=== PATIENT | female | born 1945 | race Caucasian/White ===

== ENCOUNTER → 2016-10-13 | Outpatient (CLI) | payer OTHER, MEDICARE ==
[~2016-10-13] VITALS: Ht 172.7 cm; Wt 124.3 kg
[~2016-10-13] MED LIST: CARVEDILOL12.5 MG PO; CLONAZEPAM 1 MG1 M1 PO; CRESTOR PO; CRESTOR5 MG PO; CYMBALTA60 MG PO; FISH OIL 1,0001 EAC5 PO; HYDROCHLOROTHIA25 M1 PO; HYDROCODON-ACE1 EAC8 PO; HYDROCODONE-AP1 EA11 PO; IBUPROFEN 800800 M1 PO; LESCOL XL80 MG PO; LEVOTHROID100 MC1 PO; LEVOTHROID200 MCG PO; LEVOTHROID88 MCG PO; LEVOTHYROXINE0.2 M1 PO; LEVOXYL200 MCG PO; LOPRESSOR 50 MG50 M1 PO; MACRODANTIN100 MG PO; NEURONTIN 300300 M1 PO; OMEPRAZOLE20 M2 PO; OXYCODON-ACETA1 EAC1 PO; PERCOCET 5-3251 EACH PO; PRILOSEC40 MG PO; SYNTHROID100 MCG PO; SYNTHROID88 MCG PO; TRAMADOL 50 MG50 MG PO; VITAMIN D400 UNI1 PO; ZETIA10 MG PO
--- NOTE | ~2016-10-13 | HPC ---
[facility] [address] [place] [address] PAIN MANAGEMENT CONSULTATION Name: JOSESITO JULIO JOSÉ MIGUEL Room #: REG CLPio Daniela.#: [id number] Admission: 10/13/16 Attend Phys: Shahab Almeida DO Discharge: Date of : 46 Report #: [id number] THIS REPORT FOR: //name// CC: Vishnu Almeida DATE OF SERVICE: 10/13/2016 REFERRING PHYSICIAN: Marilee HUSTON. CHIEF COMPLAINT: Low back pain, bilateral lower extremity pain. HISTORY OF PRESENT ILLNESS: As you know, the patient is a very pleasant 71-year-old female, who returns today in followup visit, to undergo next in the series of epidural injections under fluoroscopic guidance. The patient has done very well with previous epidural injections providing upwards of a month to month and half improvement in overall pain. She returns today with pain level of 6/10. States her pain as numbness, aching, tightness, spasming, sharp, grabbing in sensation, exacerbated with walking, standing, epidural seating, lying down, and medications appeared to improve pain. She has returned today for an epidural injection under fluoroscopic guidance, and to receive refills of medications. ALLERGIES: No known drug allergies. CURRENT MEDICATIONS: Zetia, clonazepam, duloxetine, hydrochlorothiazide, omega 3 fish oil, carvedilol, lovastatin, levothyroxine, gabapentin, hydrocodone, and ibuprofen. SOCIAL HISTORY: The patient denies tobacco, alcohol, or IV illicit drug use. She is retired. She is unaccompanied today. PHYSICAL EXAMINATION: VITAL SIGNS: Blood pressure 131/65, pulse 70, respiratory rate 16, unlabored. The patient is 92% on room air. Height 5 feet 8 inches tall, weight 274 pounds, BMI calculated 41.7. GENERAL: Well developed, well nourished, well hydrated, morbidly obese, 71-year-old female appearing her stated age. She is placing pain score today at 6/10. HEENT: Normocephalic and atraumatic. Pupils are equal, round, and reactive to light. Extraocular muscles are intact. Speech is fluent. EXTREMITIES: Show no clubbing, no cyanosis, no edema. MUSCULOSKELETAL: Seated straight leg raising negative. Supine straight leg raising positive. Yessica's test is negative. Gait is antalgic, utilizing cane for ambulation. [address] [address] PAIN MANAGEMENT CONSULTATION Name: JOSESITO JULIO Room #: REG CLI Kevin#: [id number] Admission: 10/13/16 Attend Phys: Shahab Almeida DO Discharge: Date of : 46 Report #: [id number] ASSESSMENT: 1. Symptomatic lumbar radiculopathy. 2. Severe and progressively worsening spinal stenosis of the lumbar spine. 3. Displacement of lumbar intervertebral disk with radiculopathy. 4. Lumbosacral spondylosis with radiculopathy. 5. Lumbar degeneration. 6. Chronic intractable pain. PLAN: 1. The patient returns today in followup visit, requesting next in the series of epidural injections under fluoroscopic guidance. The patient has done very well with previous epidural injections, and hopeful to see similar improvement today. She has been advised the risks and benefits of the procedure. These risks include but are not necessarily limited to bleeding, bruising, infection, worsening pain, no relief of pain, and also risk of temporary or permanent muscle weakness, temporary or permanent nerve damage, possible paralysis and . The patient states she understood and wished to proceed. 2. The patient was provided a prescription of hydrocodone 5/325 one tab every 6 hours p.r.n. for pain, #120, releases of today, 4 weeks from today, and 8 weeks from today. 3 months' worth of medication. 4. The patient was provided a prescription of gabapentin 300 mg dose, #330. She is to take 3 tabs in the morning, 3 tabs at noon, and 5 tabs at night. She was given this prescription with two refills, 3 months' worth of medication. 6. The patient returns to our clinic on an as needed basis for possible repeat epidural injection. Otherwise, we will see her back in followup visit in 3 months for medications. PROCEDURE NOTE DESCRIPTION OF PROCEDURE: Lumbar epidural steroid injection under fluoroscopic guidance. After obtaining written consent, the patient was taken back to fluoroscopy suite, placed in the prone position with pillow under her abdomen to decrease lumbar lordosis. Skin overlying the lumbosacral area was prepped and draped in aseptic fashion. The lumbar intervertebral spaces were identified by AP fluoroscopy. Skin and subcutaneous tissue overlying target site of injection was anesthetized with 3 mL of 1% lidocaine. A 20-gauge 4-1/2 inch Tuohy needle advanced under fluoroscopic guidance towards the epidural space using a paramedian approach. Epidural space was identified using loss of resistance to air technique. After negative aspiration for heme or cerebrospinal fluid, 1 mL of Omnipaque was injected. Lumbar epidurogram was confirmed using both AP and lateral fluoroscopy. After negative aspiration for heme or cerebrospinal fluid, 5 mL of a solution containing 2 mL 40 mg per mL, [address] [facility] [address] [place] [address] PAIN MANAGEMENT CONSULTATION Name: JOSESITO JULIO Room #: REG CLI [facility]#: [id number] Admission: 10/13/16 Attend Phys: Shahab Almeida DO Discharge: Date of : 46 Report #: [id number] mg total triamcinolone and 3 mL lidocaine 1% was injected slowly. Needle retracted approximately fdc, needle tract flushed with 3 mL of 1% lidocaine. Needle then removed. Sterile bandage placed over the injection site. No new motor deficits present in lower extremity following the procedure. The patient tolerated the procedure well, carefully escorted to the recovery room in stable condition. No apparent complications. After meeting discharge criteria, the patient discharged home. <ELECTRONICALLY SIGNED> By: Shahab Almeida DO 10/14/16 0743 1157 1413 Shahab Almeida DO /nt
[2016-10-13 10:51] VITALS: BP 131/65
== END | disposition home or self-care (01) ==
LOC: PAIN 07:16
DX: M51.16 Intervertebral disc disorders with radiculopathy, lumbar region (principal); M48.06 Spinal stenosis, lumbar region; M47.27 Other spondylosis with radiculopathy, lumbosacral region; G89.29 Other chronic pain; M19.90 Unspecified osteoarthritis, unspecified site

== ENCOUNTER → 2017-01-26 | Outpatient (CLI) | payer OTHER, MEDICARE ==
[~2017-01-26] VITALS: Ht 172.7 cm; Wt 126.6 kg
--- NOTE | ~2017-01-26 | HPC ---
[facility] [address] [place] [address] PAIN MANAGEMENT CONSULTATION Name: JOSESITO JULIO Room #: REG CL MAlexWesley.#: [id number] Admission: 01/26/17 Attend Phys: Shahab Almeida DO Discharge: Date of : 46 Report #: [id number] THIS REPORT FOR: //name// CC: Vishnu Almeida DATE OF SERVICE: 01/26/2017 REFERRING PHYSICIAN: Marilee De La Paz APRN. CHIEF COMPLAINT: Low back pain, bilateral lower extremity pain. HISTORY OF PRESENT ILLNESS: As you know, the patient is a 71-year-old female who returns today in followup visit to undergo the next in a series of epidural injections under fluoroscopic guidance. She states this in combination with medication management is controlling her pain to a tolerable level. She is able to go about all activities of daily living without significant pain interference. As you are aware, the patient suffers from lumbar radiculopathy secondary to severe and progressively worsening spinal stenosis. She returns today requesting next in a series of epidural injections to build on success previous intervention. The patient denies any injury or trauma that may have led to recurrence of symptoms. She is requesting also refill of medications at current dosing as she does feel these are beneficial for her ongoing pain. ALLERGIES: NO KNOWN DRUG ALLERGIES. CURRENT MEDICATIONS: Zetia, clonazepam, duloxetine, hydrochlorothiazide, omega 3 fish oil, carvedilol, lovastatin, levothyroxine, gabapentin, hydrocodone, ibuprofen. SOCIAL HISTORY: The patient denies tobacco, alcohol, IV or illicit drug use. She is unaccompanied today. PHYSICAL EXAMINATION: VITAL SIGNS: Blood pressure 125/94, pulse 78, respiratory rate 14, unlabored. The patient 93% on room air, height 5 feet 8 inches tall, weight 279 pounds, BMI calculated 42.4. GENERAL: Well-developed, well-nourished, well-hydrated, morbidly obese 71-year-old female appearing stated age, placing pain score today 6/10. HEENT: Normocephalic, atraumatic. Pupils equal, round, reactive to light. Extraocular muscles are intact. Sclerae nonicteric, without injection. EXTREMITIES: Show no clubbing, no cyanosis, no edema. MUSCULOSKELETAL: The patient has a slightly antalgic gait. She is using a cane for ambulation. Seated straight leg raising negative. Supine straight leg [facility] [address] [place] [address] PAIN MANAGEMENT CONSULTATION Name: JOSESITO JULIO Room #: REG CLI [facility].#: [id number] Admission: 01/26/17 Attend Phys: Shahab Almeida DO Discharge: Date of : 46 Report #: [id number] raising positive. Fabere's test negative. Muscle bulk and tone equal and symmetrical in lower extremities. ASSESSMENT: 1. Symptomatic lumbar radiculopathy. 2. Progressively worsening spinal stenosis of lumbar spine. 3. Displacement of lumbar intervertebral disk with radiculopathy. 4. Lumbosacral spondylosis with radiculopathy. 5. Lumbar facet arthropathy. 6. Lumbar degeneration. 7. Chronic intractable pain. PLAN: 1. The patient returns today in followup visit requesting next in a series of epidural injections under fluoroscopic guidance. The patient has noticed good benefit with previous injections. We have consented her to undergo the procedure today. I advised her of the risks and benefits, states she understood and did wish to proceed. 2. The patient was provided a prescription of hydrocodone 7.5/325 one tab p.o. q. 6 hours p.r.n. for pain. I have given the patient #120, releases of today, 4 weeks from today, 8 weeks from today. 3. The patient was provided a prescription of gabapentin 300 mg dose. She is to take 3 tabs in the morning, 3 tabs at noon, 5 tabs at night. She was given #330 for one month prescription with two refills. This equals a total of 3 months' worth of medication. 4. The patient to return to our clinic on an as needed basis for possible repeat epidural injection. Otherwise, we will see the patient back in followup visit 3 months for medication management. PROCEDURE NOTE DESCRIPTION OF PROCEDURE: Lumbar epidural steroid injection under fluoroscopic guidance. After obtaining written consent, the patient was taken back to fluoroscopy suite, placed in prone position with pillow under abdomen to decrease lumbar lordosis. Skin was overlying lumbosacral areas, then prepped and draped in aseptic fashion. Lumbar intervertebral spaces were identified by AP fluoroscopy. Skin and subcutaneous tissue overlying target site of injection was anesthetized with 3 mL of 1% lidocaine. A 20-gauge 4-1/2 inch Tuohy needle was advanced under fluoroscopic guidance towards the epidural space using a paramedian approach. Epidural space identified using loss of resistance to air technique. After negative aspiration for heme or cerebrospinal fluid, 1 mL of Omnipaque was injected. Lumbar epidurogram was confirmed using both AP and lateral fluoroscopy. After negative [address] [address] PAIN MANAGEMENT CONSULTATION Name: JOSESITO JULIO Room #: REG ELANA Brown#: [id number] Admission: 01/26/17 Attend Phys: Shahab Almeida DO Discharge: Date of : 46 Report #: [id number] aspiration for heme or cerebrospinal fluid, 5 mL of a solution containing 2 mL 40 mg per mL, 80 mg total triamcinolone, 3 mL lidocaine 1% injected slowly. Needle retracted long-term, needle tract flushed 3 mL 1% lidocaine. Needle then removed. Sterile bandage placed over injection site. No new motor deficits present in the lower extremity following the procedure. The patient tolerated procedure well, carefully escorted to the recovery in stable condition. No apparent complications. After meeting discharge criteria, the patient discharged home. <ELECTRONICALLY SIGNED> By: Shahab Almeida DO 01/27/17 1158 0715 1115 Shahab Almeida DO /nt
[2017-01-26 10:03] VITALS: BP 125/94
== END | disposition home or self-care (01) ==
LOC: PAIN 07:40
DX: M51.16 Intervertebral disc disorders with radiculopathy, lumbar region (principal); M48.06 Spinal stenosis, lumbar region; M47.27 Other spondylosis with radiculopathy, lumbosacral region; M46.96 Unspecified inflammatory spondylopathy, lumbar region; G89.29 Other chronic pain

== ENCOUNTER → 2017-05-05 | Outpatient (CLI) | payer OTHER, MEDICARE ==
[~2017-05-05] VITALS: Ht 172.7 cm; Wt 135.8 kg
[~2017-05-05] MED LIST changes: +LEVOTHYROXIN0.025 MG PO
--- NOTE | ~2017-05-05 | HPC ---
[facility] [address] [place] [address] PAIN MANAGEMENT CONSULTATION Name: JOSESITO JULIO [facility] #: [facility] [id number] Admission: 05/05/17 Attend Phys: Shahab Almeida DO Discharge: Date of : 46 Report #: [id number] THIS REPORT FOR: //name// CC: AGGIE Almeida DATE OF SERVICE: 05/05/2017 DATE OF SERVICE: 05/05/2017 CHIEF COMPLAINT: Low back pain, bilateral lower extremity pain. HISTORY OF PRESENT ILLNESS: As you know, the patient is a 72-year-old female, who returns today in followup visit to undergo next in the series of epidural injections under fluoroscopic guidance. The patient indicates pain today at the level of 8/10. Indicates pain is numbness, aching tightness, spasming, sharp, grabbing style pain. She indicates pain is exacerbated with walking, standing and worsens throughout the day; alleviate with epidural, sitting down, medications and using a walker. She indicates that she has become weaker over the past couple of months. She denies new injury or trauma. She is concerned about her balance and now that her legs "feel wobbly." She returns today for discussion of treatment options and to undergo refills of medications. ALLERGIES: SULFA. CURRENT MEDICATIONS: Levothyroxine 25 mcg per day, hydrocodone 7.5/325 one tab every 6 hours p.r.n. for pain, gabapentin 300 mg every 8 hours, rosuvastatin 5 mg per day, carvedilol 12.5 mg once a day, vitamin D 400 units per day, omega-3 fish oil 1 tab per day, hydrochlorothiazide 25 mg once a day, duloxetine 60 mg once a day, clonazepam 1 mg p.o. at bedtime, Zetia 10 mg per day. SOCIAL HISTORY: The patient denies tobacco, alcohol, IV or illicit drug use. She is accompanied by her present in room today. IMAGING: No new imaging available. PHYSICAL EXAMINATION: VITAL SIGNS: Blood pressure 127/74, pulse is 60, respiratory rate 20, unlabored. The patient is 97% on room air, height 5 feet 8 inches tall, weight 299.4 pounds, BMI calculated 45.5. GENERAL: Well developed, well nourished, well hydrated, severely morbidly obese 72-year-old female appearing her stated age. Placing current pain score at 8/10. HEENT: Normocephalic, atraumatic. Pupils equal, round[place] [address] PAIN MANAGEMENT CONSULTATION Name: JOSESITO JULIO Room #: REG [facility].#: [id number] Admission: 05/05/17 Attend Phys: Shahab Almeida DO Discharge: Date of : 46 Report #: [id number] Extraocular muscles are intact. Speech remains fluent. EXTREMITIES: Show no clubbing, no cyanosis, no edema. MUSCULOSKELETAL: Lower extremity strength is weakened bilaterally. Gait is antalgic. She is using a roller walker for ambulation. Seated straight leg raising positive, supine straight leg raising positive. Fabere's test is negative. Modified Gaenslen's positive for axial low back pain. Ankle clonus negative. Babinski is negative. ASSESSMENT: 1. Symptomatic lumbar radiculopathy. 2. Progressively worsening spinal stenosis of lumbar spine. 3. Displacement of lumbar intervertebral disk with radiculopathy. 4. Lumbosacral spondylosis with radiculopathy. 5. Facet arthropathy, lumbar spine. 6. Lumbar degeneration. 7. Chronic intractable pain. PLAN: 1. The patient returns today in followup visit to undergo epidural injection under fluoroscopic guidance. The patient does feel these epidural injections do provide good benefit. She has requested this epidural reperformed today. We recommend the patient undergo the injection, then home to recuperate from the injection today and tomorrow allowing for approximately 24-hour time frame before becoming active again. The patient states understood and does notice improved efficacy when she does so. She has been consented to undergo the epidural injection. Advised risks and benefits, states she understood and wished to proceed. 2. The patient was provided a prescription of Neurontin 300 mg dose. She was given #330 tablets to be taking orally. She was given 2 refills. She is tolerating this medication well and does find the Neurontin beneficial for neuropathic pain. She is denying any side effects with its use and wishes continued therapy. She was given this prescription for the next 3 months. 3. The patient was provided a refill prescription of [place] 7.5/325 one tab every 6 hours p.r.n. for pain, #120, releases of today, 4 weeks from today, 8 weeks from today, 3 months' worth of medication. 4. We will see the patient back in followup visit in 3 months for medical therapy earlier if she wishes to undergo next in the series of epidural injections. DESCRIPTION OF PROCEDURE: L5-S1 interlaminar epidural steroid injection under fluoroscopic guidance. After obtaining written consent, the patient was taken back to fluoroscopy suite, placed in prone position with pillow under abdomen to decrease lumbar lordosis. Skin overlying lumbosacral area prepped and draped in aseptic fashion. Lumbar intervertebral spaces were identified by AP fluoroscopy. [facility] [address] [place] [address] PAIN MANAGEMENT CONSULTATION Name: JOSESITO JULIO Room #: REG CL Kevin#: [id number] Admission: 05/05/17 Attend Phys: Shahab Almeida DO Discharge: Date of : 46 Report #: [id number] and subcutaneous tissue overlying target site of injection was anesthetized with 3 mL of 1% lidocaine. A #20-gauge 4-1/2 inch Tuohy needle advanced under fluoroscopic guidance towards the epidural space using a paramedian approach. Epidural space identified using loss of resistance to air technique. After negative aspiration for heme or cerebrospinal fluid, 1 mL of Omnipaque was injected. Lumbar epidurogram was confirmed using both AP and lateral fluoroscopy. After negative aspiration for heme or cerebrospinal fluid, 5 mL of a solution containing 2 mL 40 mg per mL, 80 mg total triamcinolone, 3 mL lidocaine 1% injected slowly. Needle retracted longterm, needle tract flushed 3 mL 1% lidocaine. Needle then removed. Sterile bandage placed over injection site. No new motor deficits present in lower extremity following the procedure. The patient tolerated procedure well, carefully escorted to the recovery in stable condition. No apparent complications. After meeting discharge criteria, the patient discharged home. <ELECTRONICALLY SIGNED> By: Shahab Almeida DO 05/17/17 0804 0743 0839 Shahab Almeida DO /nt
[2017-05-05 08:55] VITALS: BP 127/74
== END | disposition home or self-care (01) ==
LOC: PAIN 07:02
DX: M51.16 Intervertebral disc disorders with radiculopathy, lumbar region (principal); M48.06 Spinal stenosis, lumbar region; M47.27 Other spondylosis with radiculopathy, lumbosacral region; G89.29 Other chronic pain; M12.88 Other specific arthropathies, not elsewhere classified, other specified site

== ENCOUNTER → 2017-07-27 | Outpatient (CLI) | payer OTHER, MEDICARE ==
[~2017-07-27] VITALS: Ht 172.7 cm; Wt 135.5 kg
--- NOTE | ~2017-07-27 | HPC ---
[facility] [address] [place] [address] PAIN MANAGEMENT CONSULTATION Name: JOSESITO JULIO Room #: REG [facility] [id number] Admission: 07/27/17 Attend Phys: Shahab Almeida DO Discharge: Date of : 46 Report #: [id number] THIS REPORT FOR: //name// CC: Vishnu Almeida DATE OF SERVICE: 07/27/2017 CHIEF COMPLAINT: Low back pain, bilateral lower extremity pain and paresthesias. HISTORY OF PRESENT ILLNESS: As you know, the patient is a very pleasant 72-year-old female who returns today in followup visit to undergo the next in a series of epidural injections under fluoroscopic guidance. She has noted good efficacy with previous epidural injection, most recent with return of symptoms. She states that the injection we provided at last visit gave 90% improvement in overall pain, lasting until just recently. She returns today for epidural injection and to receive refills of medications for which she takes for ongoing analgesia. She denies any side effects to medications. She is not having any new injury, new trauma that may have led to progression of pain. ALLERGIES: SULFA. CURRENT MEDICATIONS: Levothyroxine, hydrocodone, gabapentin, rosuvastatin, carvedilol, vitamin D, omega-3 fish oil, hydrochlorothiazide, duloxetine, clonazepam, Zetia. SOCIAL HISTORY: The patient denies tobacco, alcohol, IV or illicit drug use. She is unaccompanied today. IMAGING: No new imaging available. PHYSICAL EXAMINATION: VITAL SIGNS: Blood pressure 147/57, pulse 74, respiratory rate 20, unlabored. The patient is 95% on room air. Height 5 feet 8 inches tall, weight 298.8 pounds, BMI calculated 45.4. GENERAL: Well-developed, well-nourished, well-hydrated, class 3 morbidly obese 72-year-old female, appearing her stated age, placing current pain score at 5/10. HEENT: Normocephalic, atraumatic. Pupils equal, round, reactive to light. Extraocular muscles are intact. EXTREMITIES: Show no clubbing, no cyanosis, no edema. MUSCULOSKELETAL: Lower extremity strength is weakened bilaterally. Gait is antalgic. Seated straight leg raising negative. Supine straight leg raising [address] [address] PAIN MANAGEMENT CONSULTATION Name: JOSESITO JULIO Iris Room #: REG [facility]#: [id number] Admission: 07/27/17 Attend Phys: Shahab Almeida DO Discharge: Date of : 46 Report #: [id number] positive. ENOCH test negative. Modified Gaenslen's positive for axial low back pain. Ankle clonus negative. Babinski is negative. ASSESSMENT: 1. Symptomatic lumbar radiculopathy. 2. Progressively worsening spinal stenosis of the lumbar spine. 3. Displacement of lumbar intervertebral disk with radiculopathy. 4. Lumbosacral spondylosis with radiculopathy. 5. Facet arthropathy of the lower lumbar spine. 6. Lumbar degeneration. 7. Chronic intractable pain. PLAN: 1. The patient returns today in followup visit requesting to undergo epidural injection under fluoroscopic guidance. The patient has done very well with previous epidural injection. She is hopeful to see similar improvement today. She has been advised of the risks and benefits of the procedure, states she understood and wished to proceed. 2. The patient was provided a prescription of [place] 7.5/325 one tab every 6 hours p.r.n. for pain; given the patient #120, releases of today, 4 weeks from today, 8 weeks from today, 3 months' worth of medication. 3. The patient was provided a prescription of gabapentin 300 mg dose. She is taking 3 tabs in the morning, 3 tabs at noon, 5 tabs at night. She was given #330 tablets and 2 refills, 3 months' worth of medication. 4. The patient will return to our clinic on an as-needed basis for an epidural injection under fluoroscopic guidance. Otherwise, we will see her back in followup visit for medication management in 3 months. DESCRIPTION OF PROCEDURE: L5-S1 interlaminar epidural steroid injection under fluoroscopic guidance. After obtaining written consent, the patient was taken back to fluoroscopy suite, placed in prone position with pillow under abdomen to decrease lumbar lordosis. Skin overlying the lumbosacral area then prepped and draped in aseptic fashion. L5-S1 vertebral interspace was identified by AP fluoroscopy. Skin and subcutaneous tissue overlying target site of the injection was anesthetized with 3 mL of 1% lidocaine. A 20-gauge 4-1/2-inch Tuohy needle advanced under fluoroscopic guidance towards the epidural space using a left paramedian approach. Epidural space identified using loss of resistance to air technique. After negative aspiration for heme or cerebrospinal fluid, 1 mL of Omnipaque was injected. Lumbar epidurogram was confirmed using both AP and lateral fluoroscopy. After negative aspiration for heme or cerebrospinal fluid, 5 mL of a solution containing 2 mL of 40 mg/mL, 80 mg total triamcinolone, 3 mL of lidocaine 1% injected slowly. Needle retracted approximately detention, flushed with 1 mL of 1% lidocaine and removed. Sterile [address] [address] PAIN MANAGEMENT CONSULTATION Name: JOSESITO JULOI Room #: REG [facility]lexAlex#: [id number] Admission: 07/27/17 Attend Phys: Shahab Almeida DO Discharge: Date of : 46 Report #: [id number] bandage placed over injection site. No new motor deficits present in the lower extremity following the procedure. The patient tolerated the procedure well, carefully escorted to the recovery in a stable condition. No apparent complications. After meeting discharge criteria, the patient discharged home. By: [id number] Shahab Almeida DO /nt
[2017-07-27 10:30] VITALS: BP 147/57
== END | disposition home or self-care (01) ==
LOC: PAIN 05:53
DX: M51.16 Intervertebral disc disorders with radiculopathy, lumbar region (principal); M48.061 Spinal stenosis, lumbar region without neurogenic claudication; M47.27 Other spondylosis with radiculopathy, lumbosacral region; M12.88 Other specific arthropathies, not elsewhere classified, other specified site; G89.29 Other chronic pain; Z79.899 Other long term (current) drug therapy; Z79.891 Long term (current) use of opiate analgesic; Z88.2 Allergy status to sulfonamides

== ENCOUNTER → 2017-10-26 | Outpatient (CLI) | payer OTHER, MEDICARE ==
[~2017-10-26] VITALS: Ht 172.7 cm; Wt 142.1 kg
--- NOTE | ~2017-10-26 | HPC ---
[facility] [address] [place] [address] PAIN MANAGEMENT CONSULTATION Name: JOSESITO JULIO Room #: REG [facility]#: [id number] Admission: 10/26/17 Attend Phys: Shahab Almeida DO Discharge: Date of : 46 Report #: [id number] THIS REPORT FOR: //name// CC: Vishnu Almeida DATE OF SERVICE: 10/26/2017 REFERRING PHYSICIAN: ROBEL Majano. CHIEF COMPLAINT: Low back pain, bilateral lower extremity pain and paresthesias. HISTORY OF PRESENT ILLNESS: As you know, the patient is a very pleasant 72-year-old female who returns today in followup visit with pain levels of 5/10. The patient states her pain is numbness, tingling, tightness, spasming, sharp in sensation, exacerbated with walking, standing, certain activities, improves with epidurals, sitting, lying down and medications. She returns today in followup visit, denying any new injury, new trauma that may have led to progression of symptoms, requesting epidural injection and medication refills. Overall, the patient states she has done very well with previous epidural injection. She indicates today an improvement of 85%, lasting for 4-5 weeks. ALLERGIES: SULFA. CURRENT MEDICATIONS: Levothyroxine, hydrocodone, gabapentin, , carvedilol, vitamin D, omega 3 fish oil, hydrochlorothiazide, duloxetine, clonazepam, Zetia. SOCIAL HISTORY: The patient denies tobacco, alcohol, IV or illicit drug use. She is accompanied by her present in room today. IMAGING: No new imaging available. PQRS: The patient does have a history of left lower extremity osteoarthritis of the knee. She has no history of rheumatoid arthritis. She is not a fall risk, though she does use a cane for ambulation. We discussed proper use of this device. The patient is not on blood thinners. She does have a history of hypertension, for which she takes medications. She has an opioid contract with us which was signed a year ago. She has taken the opioid assessment risk tool which showed low potential for addiction. Her functional assessment is 47/70 showing moderate to severe interference of daily activity secondary to pain. PHYSICAL EXAMINATION: VITAL SIGNS: Blood pressure 139/64, pulse 78, respiratory rate 20, unlabored. [address] [address] PAIN MANAGEMENT CONSULTATION Name: JOSESITO JULIO Room #: REG [facility]#: [id number] Admission: 10/26/17 Attend Phys: Shahab Almeida DO Discharge: Date of : 46 Report #: [id number] The patient is 96% on room air. Height 5 feet 8 inches tall, weight 313.2 pounds, BMI calculated 47.6. GENERAL: Well-developed, well-nourished, well-hydrated, morbidly obese 72-year-old female appearing her stated age, pain is rated around 5-10. HEENT: Normocephalic, atraumatic. Pupils equal, round, reactive to light. EXTREMITIES: Show no clubbing, no cyanosis, no edema. MUSCULOSKELETAL: Lower extremity strength is weakened bilaterally. Gait antalgic. Seated straight leg raising negative. Supine straight leg raising positive on the right. Yessica's test negative. Modified Gaenslen's positive for axial low back pain. Ankle clonus negative. Babinski is negative. ASSESSMENT: 1. Symptomatic lumbar radiculopathy. 2. Progressively worsening spinal stenosis of lumbar spine. 3. Displacement of lumbar intervertebral disk with radiculopathy. 4. Lumbosacral spondylosis with radiculopathy. 5. Facet arthropathy of the lower lumbar spine. 6. Lumbar degeneration. 7. Chronic intractable pain. PLAN: 1. The patient returns today in followup visit requesting to undergo epidural injection under fluoroscopic guidance. She noted excellent benefit with previous epidural injection, 85% improvement in overall pain lasting for nearly 5 weeks. She returns today in followup visit requesting to undergo the next in the series of epidural injections. I have advised the patient of the risks and benefits, states understood and wished to proceed. 2. The patient will be provided refill prescription of Angie 7.5/325 one tab every 6 hours p.r.n. for pain, I have given the patient #120, releases of today, 4 weeks from today, 8 weeks from today, 3 months' worth of medication. The patient was advised to safeguard medication. She has not had lost or stolen prescriptions. She has not called for early refills. She appears to be appropriate with use of therapy. Her opioid risk tool indicates a low potential for addiction. 3. The patient was provided a prescription of Neurontin 300 mg dose 3 tabs in morning and 3 tabs at noon, 5 tabs at night, she was given 330 tablets with 2 refills. 4. The patient will return to our clinic in 3 months for medication management. Otherwise, she can return at any time for the next in the series of epidural injections. <ELECTRONICALLY SIGNED> By: Shahab Almeida, 11/03/17 1130 [id number] [id number] Shahab Almeida DO /nt
--- NOTE | ~2017-10-26 | P ---
[facility] [place] [address] [place] [address] PROCEDURE REPORT Name: JOSESITO JULIO [facility] [id number] Admission: 10/26/17 Attend Phys: Shahab Almeida DO Discharge: Date of : 46 Report #: [id number] THIS REPORT FOR: //name// CC: AGGIE Almeida DATE OF SERVICE: 10/26/2017 PROCEDURE NOTE DESCRIPTION OF PROCEDURE: L5-S1 right paramedian epidural steroid injection under fluoroscopic guidance. After obtaining written consent, the patient was taken back to fluoroscopy suite, placed in prone position with pillow under abdomen to decrease lumbar lordosis. Skin overlying lumbosacral area then prepped and draped in aseptic fashion. Lumbar intervertebral spaces were identified by AP fluoroscopy. Skin and subcutaneous tissue overlying target site of injection was anesthetized with 3 mL of 1% lidocaine. A 20-gauge 4-1/2 inch Tuohy needle advanced under fluoroscopic guidance towards the epidural space using right paramedian approach. Epidural space identified using loss of resistance to air technique. After negative aspiration for heme or cerebrospinal fluid, 1 mL of Omnipaque was injected. A lumbar epidurogram was confirmed using both AP and lateral fluoroscopy. After negative aspiration for heme or cerebrospinal fluid, 5 mL of solution containing 2 mL 40 mg per mL, 80 mg total triamcinolone, 3 mL lidocaine 1% injected slowly. Needle retracted skilled nursing, flushed with 1 mL of 1% lidocaine and removed. Sterile bandage placed over injection site. No new motor deficits present in the lower extremity following procedure. The patient tolerated procedure well, carefully escorted to recovery room in stable condition. No apparent complications. After meeting discharge criteria, the patient discharged home. <ELECTRONICALLY SIGNED> By: Shahab Almeida DO 11/03/17 1130 [id number] [id number] Shahab Almeida DO /nt
[2017-10-26 11:17] VITALS: BP 139/64
== END | disposition home or self-care (01) ==
LOC: PAIN 07:13
DX: M51.16 Intervertebral disc disorders with radiculopathy, lumbar region (principal); M48.061 Spinal stenosis, lumbar region without neurogenic claudication; G89.29 Other chronic pain; M47.27 Other spondylosis with radiculopathy, lumbosacral region; M46.96 Unspecified inflammatory spondylopathy, lumbar region; Z79.899 Other long term (current) drug therapy; Z88.2 Allergy status to sulfonamides; Z98.890 Other specified postprocedural states; Z87.891 Personal history of nicotine dependence

== ENCOUNTER → 2018-01-18 | Outpatient (CLI) | payer OTHER, MEDICARE ==
[~2018-01-18] VITALS: Ht 172.7 cm; Wt 142.2 kg
--- NOTE | ~2018-01-18 | HPC ---
[facility] [address] [place] [address] PAIN MANAGEMENT CONSULTATION Name: JOSESITO JULIO [facility] [id number] Admission: 01/18/18 Attend Phys: Shahab Almeida DO Discharge: Date of : 46 Report #: [id number] THIS REPORT FOR: //name// CC: Vishnu Almeida DATE OF SERVICE: 01/18/2018 CHIEF COMPLAINT: Low back pain, bilateral lower extremity pain and paresthesias. HISTORY OF PRESENT ILLNESS: As you know, the patient is a very pleasant 72-year-old female, who returns today in followup visit reporting pain score of around 5/10. This is with medication management. She indicates her pain has begun to intensify and returns today to undergo epidural injection under fluoroscopic guidance as she does note good benefit with these procedures, reporting today a greater than 50% improvement in overall pain. She returns to undergo next in the series of epidural injections and receive refill of medications. She states overall she is doing well, has not had much in the way of changes in medical history since our last visit. ALLERGIES: SULFA. CURRENT MEDICATIONS: Levothyroxine, hydrocodone, gabapentin, carvedilol, vitamin D, omega-3 fish oil, hydrochlorothiazide, duloxetine, clonazepam, Zetia. SOCIAL HISTORY: The patient denies tobacco, alcohol, IV or illicit drug use. She is retired. She is accompanied by her , present in room today. IMAGING: No new imaging available. PQRS: The patient has bilateral lower extremity osteoarthritis. She has no rheumatoid arthritis. Pain intensity is 5/10 with medications. She is a fall risk. She has not had a fall in last 3 months, but utilizes ambulatory devices for safety. She is not on blood thinners. She is treated for hypertension. She has been on opioids for longer than 6 weeks and is under contract with [facility] for pain management. Risk tool shows low risk of opioid addiction. She is providing a functional assessment of a 27/70 indicating moderate interference. PHYSICAL EXAMINATION: VITAL SIGNS: Blood pressure 125/59, pulse 72, respiratory rate 20 and unlabored. The patient is 96% on room air. Height 5 feet 8 inches tall, weight 313.6 pounds, BMI calculated 47.7. GENERAL: Well-developed, well-nourished, well-hydrated, class 3 [place] [address] PAIN MANAGEMENT CONSULTATION Name: JOSESITO JULIO Room #: REG CLI [facility]#: [id number] Admission: 01/18/18 Attend Phys: Shahab Almeida DO Discharge: Date of : 46 Report #: [id number] 72-year-old female, appearing stated age. Pain is rated around 5/10 with medications. HEENT: Normocephalic, atraumatic. Pupils equal, round, reactive to light. Extraocular muscles are intact. Sclerae nonicteric without injection. NEUROLOGIC: Cranial nerves 2-12 grossly intact. Speech is fluent. The patient deemed a good historian. LUNGS: Clear. No wheeze, rhonchi or rales. CARDIOVASCULAR: Regular. No appreciable gallop or rub. ABDOMEN: Soft, obese. Normoactive sounds. EXTREMITIES: Show no clubbing, no cyanosis, no edema. MUSCULOSKELETAL: Lower extremity strength is weakened bilaterally. Gait is antalgic. She is using a cane for ambulation. Seated straight leg raising negative. Supine straight leg raising positive. ENOCH test negative. ASSESSMENT: 1. Symptomatic lumbar radiculopathy. 2. Progressively worsening spinal stenosis of lumbar spine. 3. Displacement of lumbar intervertebral disk with radiculopathy. 4. Lumbosacral spondylosis with radiculopathy. 5. Facet arthropathy lower lumbar spine. 6. Lumbar degeneration. 7. Chronic intractable pain. PLAN: 1. The patient returns today in followup visit for medication management and also to undergo next in the series of epidural injections. The patient was advised the risks and benefits of repeating epidural injection. These risks include but not necessarily limited to bleeding, bruising, infection, worsening pain, no relief of pain, also risk of temporary or permanent muscle weakness, temporary or permanent nerve damage, possible paralysis, post-dural puncture headache, weakening of the bony structure secondary to steroid exposure and . The patient states understood and wished to proceed. 2. The patient was provided a prescription of Ellsworth 7.5/325 one tab every 6 hours p.r.n. for pain, given #120 tablets, releases of today, 4 weeks from today, 8 weeks from today. This is 3 months' worth of medication. She does note good efficacy with their use. No side effects reported. 3. The patient was provided a prescription of Neurontin 300 mg dose, 3 tabs in the morning, 3 tabs at noon, and 5 tabs at night, #330 tablets, 2 refills, 3 months' worth of medication. 4. We will see the patient back in followup visit in 3 months for medication management. At that time, we will also discuss the possibility of further epidural injections. PROCEDURE NOTE PROCEDURE: L5-S1 interlaminar epidural steroid injection under fluoroscopic [address] [address] PAIN MANAGEMENT CONSULTATION Name: JOSESITO JULIO Room #: REG [facility]#: [id number] Admission: 01/18/18 Attend Phys: Shahab Almeida DO Discharge: Date of : 46 Report #: [id number] guidance. DESCRIPTION OF PROCEDURE: After obtaining written consent, the patient was taken back to fluoroscopy suite, placed in prone position with pillow under abdomen to decrease lumbar lordosis. Skin overlying lumbosacral area then prepped and draped in aseptic fashion. Lumbar intervertebral space is identified by AP fluoroscopy. Skin and subcutaneous tissue overlying target site of injection was anesthetized with 3 mL of 1% lidocaine. A 20-gauge 4-1/2 inch Tuohy needle advanced under fluoroscopic guidance towards the epidural space using a right paramedian approach. Epidural space identified using loss of resistance to air technique. After negative aspiration for heme or cerebrospinal fluid, 1 mL of Omnipaque was injected. A lumbar epidurogram was confirmed using both AP and lateral fluoroscopy. After negative aspiration for heme or cerebrospinal fluid, 5 mL of a solution containing 2 mL, 40 mg per mL, 80 mg total triamcinolone, 3 mL lidocaine 1% injected slowly. Needle retracted custodial, flushed with 1 mL of 1% lidocaine and removed. Sterile bandage placed over injection site. No new motor deficits present in lower extremity following the procedure. The patient tolerated procedure well, carefully escorted to recovery room in stable condition. No apparent complications. After meeting discharge criteria, the patient discharged home. <ELECTRONICALLY SIGNED> By: Shahab Almeida DO 01/25/18 0749 1235 [id number] Shahab Almeida DO /dimitri
[2018-01-18 09:13] VITALS: BP 125/59
== END | disposition home or self-care (01) ==
LOC: PAIN 06:59
DX: M51.16 Intervertebral disc disorders with radiculopathy, lumbar region (principal); G89.29 Other chronic pain; M48.061 Spinal stenosis, lumbar region without neurogenic claudication; M47.27 Other spondylosis with radiculopathy, lumbosacral region; M46.96 Unspecified inflammatory spondylopathy, lumbar region; I10 Essential (primary) hypertension; M19.90 Unspecified osteoarthritis, unspecified site; Z88.2 Allergy status to sulfonamides; Z79.899 Other long term (current) drug therapy; Z79.891 Long term (current) use of opiate analgesic

== ENCOUNTER → 2018-07-27 | Outpatient (CLI) | payer OTHER, MEDICARE ==
[~2018-07-27] VITALS: Ht 172.7 cm; Wt 135.2 kg
--- NOTE | ~2018-07-27 | HPC ---
[facility] [address] [place] [address] PAIN MANAGEMENT CONSULTATION Name: JOSESITO JULIO Room #: REG [facility] Kevin#: [id number] Admission: 07/27/18 Attend Phys: Shahab Almeida DO Discharge: Date of : 46 Report #: [id number] THIS REPORT FOR: //name// CC: Vishnu Almeida DATE OF SERVICE: 07/27/2018 CHIEF COMPLAINT: Low back pain, bilateral lower extremity pain with paresthesias, right greater than left. HISTORY OF PRESENT ILLNESS: As you know, the patient is a 73-year-old female who returns today in followup visit for medication management to address low back pain, lower extremity pain with paresthesias due to progressively worsening spinal stenosis and chronic lumbar radiculopathy. The patient denies any side effects to medication, feels that she is doing well from that standpoint. She is considering the next in the series of lumbar epidural injections, but at this time, wishes to delay as she does have a current bacterial infection. She returns requesting refill on medications at current dosing. ALLERGIES: SULFA. CURRENT MEDICATIONS: Levothyroxine, hydrocodone, gabapentin, carvedilol, omega-3 fish oil, vitamin D, hydrochlorothiazide, duloxetine, clonazepam, Zetia. SOCIAL HISTORY: The patient denies tobacco, alcohol, IV or illicit drug use. She is retired, retired years ago, unaccompanied today. IMAGING: No new imaging available. PQRS: The patient has bilateral lower extremity osteoarthritis involving hips, knees and low back. No rheumatoid arthritis. She is placing pain intensity at approximately 6-7/10. She is a fall risk, but has not had a fall in the last 3 months. She is using a roller walker for ambulation. She is not on blood thinners. She is treated for hypertension. She is on chronic opioids, but has a low abuse potential. Pain impact score indicates 40/70, moderate to severe. PHYSICAL EXAMINATION: VITAL SIGNS: Blood pressure 144/89, pulse 82, respiratory rate 16 and unlabored. The patient is 95% on room air. Height 5 feet 8 inches tall, weight 298 pounds, BMI calculated 45.3. GENERAL: Well-developed, well-nourished, well-hydrated, class 3 morbidly obese 73-year-old female appearing stated age, placing current pain score at around 6-7/10. HEENT: Normocephalic, atraumatic. Pupils are equal, round, [place] [address] PAIN MANAGEMENT CONSULTATION Name: JOSESITO JULIO [facility] [id number] Admission: 07/27/18 Attend Phys: Shahab Almeida DO Discharge: Date of : 46 Report #: [id number] Extraocular muscles are intact. EXTREMITIES: Show no clubbing, no cyanosis, no edema. MUSCULOSKELETAL: Seated straight leg raising negative. Supine straight leg raising positive on the right. Yessica's test negative. Modified Gaenslen's positive for axial low back pain. Muscle bulk and tone appears symmetrical in lower extremities, though weakened due to deconditioning and ongoing pain. ASSESSMENT: 1. Symptomatic lumbar radiculopathy. 2. Progressively worsening spinal stenosis of the lumbar spine. 3. Displacement of lumbar intervertebral disk with radiculopathy. 4. Lumbosacral spondylosis with radiculopathy. 5. Facet arthropathy of the lumbar spine. 6. Lumbar degeneration. 7. Chronic intractable pain. PLAN: 1. The patient returns today in followup visit for continuation of medication therapy. The patient reports good efficacy with medication therapy. She wishes to continue the treatment as directed. 2. The patient was provided prescription of gabapentin 300 mg dose. She is taking 3 tabs in the morning, 3 tabs at noon, 5 tabs at night. She was given #330 tablets, 2 refills. This is 3 months' worth of medication. We reviewed the fact that opiate medications are being used to provide analgesia adequate to support activities of daily living, not attempting to achieve a specific pain score on the 0-10 Visual Analog Scale. The current opiate medications are providing sufficient analgesia to allow the patient to participate in activities of daily living. The patient is not exhibiting any aberrant behavior suggestive of drug diversion. The patient is not having any adverse reactions to medications. The patient is not suffering from daytime somnolence or mental acuity changes. The patient is managing opiate-induced constipation with appropriate gnxq-kfc-kelnwti agents and dietary considerations. The patient was counseled on concern for caution with operating a motor vehicle while using opiate medications. A physical exam was performed and the patient's functional status was evaluated. All patients with back pain were advised against the bed rest greater than 4 days and were advised to return to normal activities. Pain score assessment was noted and the treatment plan was reviewed with the patient. All current medications, both prescribed and OTC were reviewed and reconciled on the electronic medical record. Tobacco screening was accomplished and smoking cessation was advised when indicated. BMI was noted and diet/exercise modification was recommended for all patients following outside normal parameters. [address] [address] PAIN MANAGEMENT CONSULTATION Name: JOSESITO JULIO Room #: REG [facility]#: [id number] Admission: 07/27/18 Attend Phys: Shahab Almeida DO Discharge: Date of : 46 Report #: [id number] I reviewed with the patient today their responsibilities to safeguard prescription medications, reviewed their responsibility to utilize medications only as prescribed by the physician. They are to seek and receive pain medications only from 1 physician group ( [facility]). They are to use 1 pharmacy and keep the clinic informed if they change pharmacies. Their responsibilities include making followup visits in a timely fashion and to avoid abrupt discontinuation of medication usage. Their responsibilities further include bringing their medications (bottles from the pharmacy with residual pills) to the visit for possible confirmation of pill counts and the patient understands it is their responsibility to submit to random drug screens to ensure both that the medications prescribed are present, and that no other controlled substances are present. All prescriptions provided today were generated electronically. 3. The patient was provided a prescription of hydrocodone 7.5/325 one tab every 6 hours p.r.n. for pain, #120, releases of today, 4 weeks from today, 8 weeks from today, 3 months' worth of medication. 4. We will see the patient back in followup visit for medication management in 3 months. She may return earlier if she wishes to undergo epidural injection. <ELECTRONICALLY SIGNED> By: Shahab Almeida DO 07/29/18 0753 [id number] [id number] Shahab Almeida DO /nt
[2018-07-27 14:07] VITALS: BP 144/89
== END ==
LOC: PAIN 06:56
DX: M47.27 Other spondylosis with radiculopathy, lumbosacral region (principal); R20.2 Paresthesia of skin; G89.4 Chronic pain syndrome; M48.061 Spinal stenosis, lumbar region without neurogenic claudication

== ENCOUNTER → 2018-10-11 | Outpatient (CLI) | payer OTHER, MEDICARE ==
[~2018-10-11] VITALS: Ht 172.7 cm; Wt 138.9 kg
--- NOTE | ~2018-10-11 | HPC ---
[facility] [address] [place] [address] PAIN MANAGEMENT CONSULTATION Name: JOSESITO JULIO Room #: [facility] [id number] Admission: 10/11/18 Attend Phys: Shahab Almeida DO Discharge: Date of : 47 Report #: [id number] THIS REPORT FOR: //name// CC: Vishnu Almeida DATE OF SERVICE: 10/11/2018 CHIEF COMPLAINT: Low back pain, bilateral lower extremity pain with paresthesias, right greater than left. HISTORY OF PRESENT ILLNESS: As you know, the patient is a very pleasant 73-year-old female who returns today in followup visit to undergo next in the series of lumbar epidural injections. The patient reports good efficacy with combination of epidural injections and medication management. She states the most recent lumbar epidural injection provided 70% improvement in overall pain in combination with medication management. She returns today in followup visit to undergo next in the series of epidural injections to continue efficacy. She denies injury, trauma or any changes in medical history since our last visit. ALLERGIES: SULFA. CURRENT MEDICATIONS: Levothyroxine, hydrocodone, gabapentin, carvedilol, omega-3 fish oil, vitamin D, hydrochlorothiazide, duloxetine, clonazepam, Zetia. SOCIAL HISTORY: The patient denies tobacco, alcohol, IV or illicit drug use. She is retired, retired years ago, unaccompanied today. IMAGING: No new imaging available. PQRS: The patient has bilateral hip osteoarthritis, bilateral knee osteoarthritis and low back osteoarthritis. No rheumatoid arthritis. The patient is placing pain intensity today 4-5/10. She is a fall risk and uses a cane for ambulation, but has not had a fall in last 3 months. She is not on blood thinners. She has history of hypertension. She has been on opioids for greater than 6 weeks. She has a low opioid addiction potential. She is placing pain impact score 40/70 indicating [id number] interference of daily activities secondary to pain. PHYSICAL EXAMINATION: VITAL SIGNS: Blood pressure 120/97, pulse 70, respiratory rate 22 and unlabored. The patient is 96% on room air. Height 5 feet 8 inches tall, weight 306.2 pounds, BMI calculated 46.6. GENERAL: Well-developed, well-nourished, well-hydrated, class 3, [place] [address] PAIN MANAGEMENT CONSULTATION Name: JOSESITO JULIO Room #: REG CLI Kevin#: [id number] Admission: 10/11/18 Attend Phys: Shahab Almeida DO Discharge: Date of : 46 Report #: [id number] 73-year-old female appearing stated age, placing current pain score at 4-5/10. HEENT: Normocephalic, atraumatic. Pupils equal, round, reactive to light. EXTREMITIES: Show no clubbing, no cyanosis, no edema. MUSCULOSKELETAL: Lower extremity strength appears equal and symmetrical 5/5, muscle bulk and tone is symmetrical, though deconditioning noted bilaterally. Seated straight leg raising negative. Supine straight leg raising positive right. Yessica's test negative. Modified Gaenslen's is positive for axial low back pain. ASSESSMENT: 1. Symptomatic lumbar radiculopathy. 2. Progressively worsening spinal stenosis of the lumbar spine. 3. Displacement of lumbar intervertebral disk with radiculopathy. 4. Lumbosacral spondylosis with radiculopathy. 5. Facet arthropathy of the lumbar spine. 6. Lumbar degeneration. 7. Chronic intractable pain. PLAN: 1. The patient returns today in followup visit requesting to undergo lumbar epidural injection under fluoroscopic guidance. She states that the combination of medications along with epidural injections provide up to 70% improvement in overall pain, allowing the patient to go about her activities of daily living. She is very pleased with response to medication and the epidural injections and wishes to continue this treatment course. She returns today in followup visit requesting an epidural injection. She has been advised risks and benefits, states she understood and wished to proceed. 2. No medication changes made at today's visit. The patient will continue current medical therapy as previously prescribed. 3. We will see the patient back in followup visit on an as needed basis for possible next in the series of epidural injections. Otherwise, we will see her back in 3 months from our last visit for medication management. By: [id number] Shahab Almeida DO /nt
--- NOTE | ~2018-10-11 | P ---
[facility] [place] [address] PROCEDURE REPORT Name: JOSESITO JULIO Room #: REG [facility] [id number] Admission: 10/11/18 Attend Phys: Shahab Almeida DO Discharge: Date of : 46 Report #: [id number] THIS REPORT FOR: //name// CC: Vishnu Almeida DATE OF SERVICE: 10/11/2018 DESCRIPTION OF PROCEDURE: L5-S1 right paramedian epidural steroid injection under fluoroscopic guidance. After obtaining written consent, the patient was taken back to fluoroscopy suite, placed in prone position with pillow under abdomen to decrease lumbar lordosis. Skin overlying lumbosacral area then prepped and draped in aseptic fashion. The L5-S1 vertebral interspace identified by AP fluoroscopy. Skin and subcutaneous tissue overlying target site of injection was anesthetized with 3 mL of 1% lidocaine. A 20-gauge 4-1/2-inch Tuohy needle advanced under fluoroscopic guidance towards the epidural space using right paramedian approach. Epidural space identified using loss of resistance to air technique. After negative aspiration for heme or cerebrospinal fluid, 1 mL of Omnipaque injected. A lumbar epidurogram was confirmed using both AP and lateral fluoroscopy. After negative aspiration for heme or cerebrospinal fluid, 5 mL of a solution containing 2 mL 40 mg per mL, 80 mg total triamcinolone and 3 mL of lidocaine 1% injected slowly. Needle retracted approximately snf, flushed with 1 mL of 1% lidocaine, then removed. Sterile bandage placed over injection site. No new motor deficits present in the lower extremity following procedure. The patient tolerated procedure well, carefully escorted to recovery room in stable condition. No apparent complication. After meeting discharge criteria, the patient discharged home. By: [id number] Shahab Almeida DO /nt
[2018-10-11 10:41] VITALS: BP 120/97
--- NOTE | 2018-10-11 10:57 | NUR ---
Pain Clinic Assessment: 1. History of Osteoarthritis: Left Lower Extremity Right Lower Extremity History of Rheumatoid Arthritis: Not Applicable 2. Height: 5 ft. 8 in. 172.7 cm. Weight: 306.2 lb. oz. 138.892 kg. Patient's BMI: 46.6 3. Vital Signs: BP: 120/97 Pulse: 70 Resp: 22 Temp: 02 Sat: 96 ECG Mon: 4. Pain Intensity: 4-5 WITH MEDS 5. Fall Risk: Dizziness: N Needs help standing or walking: Y Fallen in the last 3 months: N Fall risk comments: 6. Patient on Blood Thinner: None 7. History of Hypertension: Y 8. Opioid Therapy greater than 6 weeks: Y Opiate Contract Signed: 04/14/16 9. Risk Assessment Tool Provided: 0-LOW 10. Functional Assessment Tool: 11. Recreational Drug Use: Never Drug Type: Tobacco Use: Never Smoker Tobacco Type: Amount or Packs/day: How Many Years: Alcohol Use: No Frequency: Quant:
== END | disposition home or self-care (01) ==
LOC: PAIN 06:50
DX: M51.16 Intervertebral disc disorders with radiculopathy, lumbar region (principal); M48.061 Spinal stenosis, lumbar region without neurogenic claudication; M47.27 Other spondylosis with radiculopathy, lumbosacral region; M12.88 Other specific arthropathies, not elsewhere classified, other specified site; G89.29 Other chronic pain; Z88.2 Allergy status to sulfonamides; Z79.899 Other long term (current) drug therapy

== ENCOUNTER → 2018-10-25 | Outpatient (CLI) | payer OTHER, MEDICARE ==
[~2018-10-25] VITALS: Ht 172.7 cm; Wt 137.9 kg
[~2018-10-25] MED LIST changes: +AMOX TR-K CLV1 EAC4 PO; +MEDROL DOSPAK21 TA1 PO; +PROMETHAZINE V120 ML PO
[2018-10-25 12:19] VITALS: BP 138/82
--- NOTE | 2018-10-25 12:22 | NUR ---
Pain Clinic Assessment: 1. History of Osteoarthritis: Left Lower Extremity Right Lower Extremity History of Rheumatoid Arthritis: Not Applicable 2. Height: 5 ft. 8 in. 172.7 cm. Weight: 304.0 lb. oz. 137.894 kg. Patient's BMI: 46.2 3. Vital Signs: BP: 138/82 Pulse: 87 Resp: 16 Temp: 02 Sat: 92 ECG Mon: 4. Pain Intensity: 2 5. Fall Risk: Dizziness: N Needs help standing or walking: N Fallen in the last 3 months: N Fall risk comments: 6. Patient on Blood Thinner: None 7. History of Hypertension: Y 8. Opioid Therapy greater than 6 weeks: Y Opiate Contract Signed: 04/14/16 9. Risk Assessment Tool Provided: 0-LOW 10. Functional Assessment Tool: 11. Recreational Drug Use: Never Drug Type: Tobacco Use: Never Smoker Tobacco Type: Amount or Packs/day: How Many Years: Alcohol Use: No Frequency: Quant:
--- NOTE | 2018-10-27 10:00 | HPC ---
[facility] [address] [place] [address] PAIN MANAGEMENT CONSULTATION Name: JOSESITO JULIO Room #: REG Pio Brown#: [id number] Admission: 10/25/18 Attend Phys: Viv Mathews Discharge: Date of : 46 Report #: [id number] THIS REPORT FOR: //name// CC: Viv Mathews Vishnu Taylor DATE OF SERVICE: 10/25/2018 CHIEF COMPLAINT: Low back pain, bilateral lower extremity pain with paresthesias. HISTORY OF PRESENT ILLNESS: This is a very pleasant 73-year-old female returns to the pain clinic today for followup for her medication refill. She tells me that she had an injection 10/11/[address] Shahab Almeida, was an epidural injection. She tells me she has 80% better from that injection. She tells me her lower back has been hurting some, but she has been diagnosed recently with bronchitis and continues to have severe cough. She said the coughing has been causing her some low back pain. Otherwise, she had been feeling quite well. She rates her pain score today as 2/10, worse with walking, standing and coughing. She said the medications, sitting, lying down and the injections help her to relieve her pain. She denies any constipation today or daytime sleepiness. She would just like a refill of her hydrocodone and gabapentin. ALLERGIES: SULFA. CURRENT LIST OF MEDICATIONS: Promethazine cough medicine, amoxicillin, hydrocodone 7.5/325 up to 4 times a day, gabapentin 300 mg in the a.m. and 300 mg at noon, 5 tablets of 300 at bedtime, Synthroid 0.25 mg a day, Crestor 5 mg daily, Coreg 12.5 mg twice a day, vitamin D 400 mg twice a day, fish oil daily, hydrochlorothiazide 25 mg daily, Cymbalta 60 mg daily, clonazepam 1 mg at bedtime, Zetia 10 mg at bedtime. PQRS: 1. She does have bilateral hip osteoarthritis, bilateral knee and lower back osteoarthritis. She denies rheumatoid arthritis. 2. Height is 5 feet 8 inches, weight is 304, BMI is 46. 3. Vital Signs: Blood pressure 138/82, pulse is 87, respirations 18, oxygen sat is 92%. 4. Pain score is 2/10. 5. Fall risk. She denies dizziness. Does not need help walking or standing, has not fallen in the last 3 months. 6. Denies blood thinners, but does take medicines for hypertension. 7. Opioid therapy is greater than 6 weeks, therefore an opioid signed contract is on the chart. 8. Risk assessment tool is low. Her functional assessment is 40/70. 9. Recreational drug use, she denies. She is not a smoker [place] [address] PAIN MANAGEMENT CONSULTATION Name: JOSESITO JULIO Room #: REG CLI Kevin#: [id number] Admission: 10/25/18 Attend Phys: Viv Mathews Discharge: Date of : 46 Report #: [id number] alcohol. We checked the prescription monitoring system. The patient is filling appropriately for her medications. We will check a drug screen on her at the next visit she is here. The patient tells me she does safeguard her medications. PHYSICAL EXAMINATION: GENERAL: This is a well-developed, well-nourished, well-hydrated, class 3 morbidly obese 73-year-old female who appears her stated age, placing her pain score at 2/10 today. HEENT: Normocephalic, atraumatic. Pupils equal, round and reactive to light. EXTREMITIES: No clubbing, no cyanosis, no edema. LUNGS: Cough present and diminished breath sounds. MUSCULOSKELETAL: Lower extremity strength appears to be symmetrical at 5/5. Muscle bulk and tone is symmetrical. The patient does walk with an antalgic gait. ASSESSMENT: 1. Symptomatic lumbar radiculopathy. 2. Progressively worsening spinal stenosis of her lumbar spine. 3. Lumbosacral spondylosis with radiculopathy. 4. Facet arthroscopy of the lumbar spine. 5. Chronic intractable pain. 6. Recent diagnosis of bronchitis. We reviewed the fact that opiate medications are being used to provide analgesia adequate to support activities of daily living, not attempting to achieve a specific pain score on the 0-10 Visual Analog Scale. The current opiate medications are providing sufficient analgesia to allow the patient to participate in activities of daily living. The patient is not exhibiting any aberrant behavior suggestive of drug diversion. The patient is not having any adverse reactions to medications. The patient is not suffering from daytime somnolence or mental acuity changes. The patient is managing opiate-induced constipation with appropriate etvg-yes-hcswhhu agents and dietary considerations. The patient was counseled on concern for caution with operating a motor vehicle while using opiate medications. A physical exam was performed and the patient's functional status was evaluated. All patients with back pain were advised against the bed rest greater than 4 days and were advised to return to normal activities. Pain score assessment was noted and the treatment plan was reviewed with the patient. All current medications, both prescribed and OTC were reviewed and reconciled on the electronic medical record. Tobacco screening was accomplished and smoking cessation was advised when indicated. BMI was noted and diet/exercise modification was recommended for all patients following outside normal [address] [address] PAIN MANAGEMENT CONSULTATION Name: JOSESITO JULIO Room #: REG [facility]#: [id number] Admission: 10/25/18 Attend Phys: Viv Mathews Discharge: Date of : 46 Report #: [id number] parameters. I reviewed with the patient today their responsibilities to safeguard prescription medications, reviewed their responsibility to utilize medications only as prescribed by the physician. They are to seek and receive pain medications only from 1 physician group ( [facility]). They are to use 1 pharmacy and keep the clinic informed if they change pharmacies. Their responsibilities include making followup visits in a timely fashion and to avoid abrupt discontinuation of medication usage. Their responsibilities further include bringing their medications (bottles from the pharmacy with residual pills) to the visit for possible confirmation of pill counts and the patient understands it is their responsibility to submit to random drug screens to ensure both that the medications prescribed are present, and that no other controlled substances are present. All prescriptions provided today were generated electronically. PLAN: 1. We discussed treatment options today, the patient tells me that she is doing significantly better from her epidural, continues to take her hydrocodone 7.5/325 and would like refills today, scripts given for quantity 120 to be released for today, 4 and 8-week. This places her current morphine mEq at 30 per daily MME dose, which falls below the CDC guidelines. 2. Script for gabapentin was also written today for 300 mg, quantity 330 with 2 additional refills. The patient takes 3 tablets in the morning and 3 tablets at noon and 5 tablets at bedtime. 3. The patient will return to the clinic in 3-month time period for medication refills or if she needs an injection earlier, she will make an appointment for that. The patient is seen in collaboration today with Dr. Shahab Almeida. <ELECTRONICALLY SIGNED> By: Viv Mathews 10/27/18 [id number] Viv Mathews /nt
== END ==
LOC: PAIN 06:45
DX: M47.27 Other spondylosis with radiculopathy, lumbosacral region (principal); M79.604 Pain in right leg; M79.605 Pain in left leg; G89.4 Chronic pain syndrome; J40 Bronchitis, not specified as acute or chronic

== ENCOUNTER → 2019-01-03 | Outpatient (CLI) | payer OTHER, MEDICARE | LOC: RAD 12-29 01:32 | DX: Z12.31 Encounter for screening mammogram for malignant neoplasm of breast (principal) ==

== ENCOUNTER → 2019-01-11 | Outpatient (CLI) | payer OTHER, MEDICARE ==
[~2019-01-11] VITALS: Ht 172.7 cm; Wt 141.1 kg
[~2019-01-11] MED LIST changes: +HYDROCHLOROTHIA25 M2 PO
--- NOTE | ~2019-01-11 | HPC ---
[facility] [address] [place] [address] PAIN MANAGEMENT CONSULTATION Name: JOSESITO JULIO Room #: REG [facility] [id number] Admission: 01/11/19 ������������������ Attend Phys: Shahab Almeida DO Discharge: ������������������ Date of : 47 Report #: [id number] THIS REPORT FOR: //name// CC: AGGIE Almeida DATE OF SERVICE: 01/11/2019 CHIEF COMPLAINT: Low back pain, bilateral lower extremity pain and paresthesias. HISTORY OF PRESENT ILLNESS: As you know, the patient is a very pleasant 73-year-old female returning in followup visit to undergo lumbar epidural injection under fluoroscopic guidance. She reports 80% improvement in overall pain with previous epidural injection with prolonged analgesic benefit. Unfortunately, the patient's symptoms have begun to return. She is now placing pain score at 5/10. Pain is described as numbness, aching, tightness, spasming, sharp, cramping in sensation; exacerbated with walking, standing, coughing; improves with epidural injections, sitting, lying down and medications. She returns today in followup visit to undergo next in the series of lumbar epidural injections in hopes of improving pain. She denies new injury or trauma or any changes in medical history since our last visit. ALLERGIES: SULFA. CURRENT MEDICATIONS: See chart. PQRS: The patient has osteoarthritic changes of the bilateral knees, lumbar spine, no rheumatoid arthritis. She is placing pain intensity today at 5/10. She is not a fall risk, has not had a fall in the last 3 months, but is utilizing a roller walker for ambulation. She is not on any blood thinners, but is being treated for hypertension. She is on chronic opioids and has a low opioid addiction potential. She is placing pain impact score at 35/70, moderate interference of daily activities secondary to pain. PHYSICAL EXAMINATION: VITAL SIGNS: Blood pressure 130/67, pulse is 84, respiratory rate 16 and unlabored. The patient is 92% on room air. Height 5 feet 8 inches tall, weight 311 pounds, BMI calculated 47.3. GENERAL: Well-developed, well-nourished, well-hydrated 73-year-old female appearing stated age. She is placing current pain score at 5/10. HEENT: Normocephalic, atraumatic. Pupils equal, round, reactive to light. EXTREMITIES: Show no clubbing, no cyanosis, and no edema. MUSCULOSKELETAL: Lower extremity strength appears equal and symmetrical 5/5. [address] [address] PAIN MANAGEMENT CONSULTATION Name: JOSESITO JULIO Room #: REG [facility].#: [id number] Admission: 01/11/19 ������������������ Attend Phys: Shahab Almeida DO Discharge: ������������������ Date of : 46 Report #: [id number] She is intact to light touch from L1 through S2 dermatomes. Seated straight leg raising negative. Supine straight leg raising positive right. Yessica's test negative. Modified Gaenslen's positive for axial low back pain. Gait antalgic favoring right lower extremity over left. ASSESSMENT: 1. Symptomatic lumbar radiculopathy. 2. Progressively worsening spinal stenosis of lumbar spine. 3. Displacement of lumbar intervertebral disk with radiculopathy. 4. Lumbosacral spondylosis with radiculopathy. 5. Facet arthropathy of the lumbar spine. 6. Lumbar degeneration. 7. Chronic intractable pain. PLAN: 1. The patient returns today in followup visit to undergo a lumbar epidural injection under fluoroscopic guidance. She reports 80% improvement in overall pain with previous epidural injection, but unfortunately, her symptoms have begun to return to a level now 5/10. She returns to undergo lumbar epidural injection under fluoroscopic guidance to address this issue. She has been advised of risks and benefits of the procedure, states understood and wished to proceed. 2. No medication changes made at today's visit. The patient will continue current medical therapy as previously prescribed. 3. We will see the patient back in followup visit on an as needed basis for the next in the series of lumbar epidural injections. PROCEDURE NOTE DESCRIPTION OF PROCEDURE: L5-S1 right paramedian epidural steroid injection under fluoroscopic guidance. After obtaining written consent, the patient was taken back to fluoroscopy suite, placed in prone position with pillow under abdomen to decrease lumbar lordosis. Skin overlying lumbosacral area was then prepped and draped in aseptic fashion. The L5-S1 vertebral interspace identified by AP fluoroscopy. Skin and subcutaneous tissue overlying target site of injection anesthetized with 3 mL of 1% lidocaine. A 20-gauge 4-1/2 inch Tuohy needle advanced under fluoroscopic guidance towards the epidural space using a right paramedian approach. Epidural space identified using loss of resistance to air technique. After negative aspiration for heme or cerebrospinal fluid, 1 mL of Omnipaque injected. Lumbar epidurogram confirmed using both AP and lateral fluoroscopy. After negative aspiration for heme or cerebrospinal fluid, 5 mL of a solution containing 2 mL 40 mg per mL, 80 mg total triamcinolone and 3 mL of lidocaine 1% injected slowly. Needle [facility] [address] [place] [address] PAIN MANAGEMENT CONSULTATION Name: JOSESITO JULIO Room #: REG CLI Daniela#: [id number] Admission: 01/11/19 ������������������ Attend Phys: Shahab Almeida DO Discharge: ������������������ Date of : 47 Report #: [id number] retracted long-term, flushed with 1 mL of 1% lidocaine and then removed. Sterile bandage placed over injection site. No new motor deficits present in the lower extremities following procedure. The patient tolerated procedure well, carefully escorted to the recovery room in stable condition. No apparent complications. After meeting our discharge criteria, the patient discharged home. ��������������������������������������������� ���������������������������������������� By: ��������������������������������������������� [id number] Shahab Almeida DO /nt
[2019-01-11 10:51] VITALS: BP 130/67
--- NOTE | 2019-01-11 10:54 | NUR ---
Pain Clinic Assessment: 1. History of Osteoarthritis: Left Lower Extremity Right Lower Extremity History of Rheumatoid Arthritis: Not Applicable 2. Height: 5 ft. 8 in. 172.7 cm. Weight: 311.0 lb. oz. 141.069 kg. Patient's BMI: 47.3 3. Vital Signs: BP: 130/67 Pulse: 84 Resp: 16 Temp: 02 Sat: 92 ECG Mon: 4. Pain Intensity: 5 5. Fall Risk: Dizziness: N Needs help standing or walking: N Fallen in the last 3 months: N Fall risk comments: 6. Patient on Blood Thinner: None 7. History of Hypertension: Y 8. Opioid Therapy greater than 6 weeks: Y Opiate Contract Signed: 04/14/16 9. Risk Assessment Tool Provided: 0-LOW 10. Functional Assessment Tool: 11. Recreational Drug Use: Never Drug Type: Tobacco Use: Never Smoker Tobacco Type: Amount or Packs/day: How Many Years: Alcohol Use: No Frequency: Quant:
== END | disposition home or self-care (01) ==
LOC: PAIN 07:12
DX: M51.16 Intervertebral disc disorders with radiculopathy, lumbar region (principal); M48.061 Spinal stenosis, lumbar region without neurogenic claudication; M47.27 Other spondylosis with radiculopathy, lumbosacral region; M47.26 Other spondylosis with radiculopathy, lumbar region; G89.29 Other chronic pain; I10 Essential (primary) hypertension; M17.0 Bilateral primary osteoarthritis of knee; Z79.891 Long term (current) use of opiate analgesic; Z88.2 Allergy status to sulfonamides; Z79.899 Other long term (current) drug therapy; Z98.890 Other specified postprocedural states

== ENCOUNTER → 2019-01-16 | Outpatient (CLI) | payer OTHER, MEDICARE ==
[~2019-01-16] VITALS: Ht 172.7 cm; Wt 142.1 kg
[2019-01-16 11:03] VITALS: BP 160/82
--- NOTE | 2019-01-16 11:09 | NUR ---
Pain Clinic Assessment: 1. History of Osteoarthritis: Left Lower Extremity Right Lower Extremity History of Rheumatoid Arthritis: Not Applicable 2. Height: 5 ft. 8 in. 172.7 cm. Weight: 313.2 lb. oz. 142.067 kg. Patient's BMI: 47.6 3. Vital Signs: BP: 160/82 Pulse: 71 Resp: 20 Temp: 02 Sat: 96 ECG Mon: 4. Pain Intensity: 2-3 5. Fall Risk: Dizziness: N Needs help standing or walking: Y Fallen in the last 3 months: N Fall risk comments: 6. Patient on Blood Thinner: None 7. History of Hypertension: Y 8. Opioid Therapy greater than 6 weeks: Y Opiate Contract Signed: 04/14/16 9. Risk Assessment Tool Provided: 0-LOW 10. Functional Assessment Tool: 11. Recreational Drug Use: Never Drug Type: Tobacco Use: Never Smoker Tobacco Type: Amount or Packs/day: How Many Years: Alcohol Use: No Frequency: Quant:
--- NOTE | 2019-01-17 08:59 | HPC ---
[facility] [address] [place] [address] PAIN MANAGEMENT CONSULTATION Name: JOSESITO JULIO Room #: REG ELANA Brown#: [id number] Admission: 01/16/19 ������������������ Attend Phys: Viv Mathews Discharge: ������������������ Date of : 47 Report #: [id number] THIS REPORT FOR: //name// CC: Viv Mathews Vishnu Taylor DATE OF SERVICE: 01/16/2019 CHIEF COMPLAINT: Low back pain, bilateral extremity pain and paresthesias. HISTORY OF PRESENT ILLNESS: This is a very pleasant 73-year-old female who returns to the pain clinic today for a refill of her medications. She recently underwent a lumbar epidural steroid injection last week by Dr. Shahab Almeida. She tells me she is 80% better from that injection, feeling much better. Her pain score today is a 2-3, mostly in her low back and legs. Today, she tells me she hyperextended her left knee, so that is most bothersome today. She does have pain, worse with walking, standing, better when she is sitting down and lying down and her medications. She is here today for a refill of her medications. ALLERGIES: SULFA. CURRENT MEDICATION: Gabapentin 300 mg every 8 hours, 3 in the morning, 3 at noon, 5 at bedtime; hydrocodone 7.5/325 p.r.n.; Synthroid 0.25 mcg daily; Crestor 5 mg daily; Coreg 12.5 mg b.i.d.; vitamin D 400 units b.i.d.; hydrochlorothiazide 25 mg daily; Cymbalta 60 mg daily; clonazepam 1 mg at bedtime; and Zetia 1 mg every day. PQRS: 1. The patient has arthritic changes in her bilateral knees and lumbar spine. Denies any rheumatoid arthritis. 2. Height is 5 feet 8 inches, weight is 313, BMI is 47. 3. VITAL SIGNS: 160/82, pulse of 71, respirations 20, oxygen sat is 96. 4. Pain score is 2-3. 5. Fall risk. Denies dizziness, does need help walking and uses a cane, has not fallen in the last 3 months. 6. The patient is not on any blood thinners, does take medicines for hypertension. 7. Opiate therapy is greater than 6 weeks; therefore, an opioid signed contract is on the chart. 8. Risk assessment tool is low. Functional assessment is 40/70. 9. Recreational drug use, she denies. She is not a smoker and does not drink alcohol. We did check the prescription monitoring system. The patient is filling appropriately from Dr. Almeida. There is not a drug [place] [address] PAIN MANAGEMENT CONSULTATION Name: NORIJOSESITO Room #: REG ELANA Brown#: [id number] Admission: 01/16/19 ������������������ Attend Phys: Viv Mathews Discharge: ������������������ Date of : 47 Report #: [id number] past year, so we will recheck that in her next visit for medications. She tells me she safeguards her meds at all times. PHYSICAL EXAMINATION: GENERAL: This is a well-developed, well-nourished, well-hydrated 73-year-old female who appears her stated age. Placing her pain score today at 2/10. HEENT: Normocephalic, atraumatic. Pupils equal, round and reactive to light. EXTREMITIES: No clubbing, no cyanosis, no edema. MUSCULOSKELETAL: Lower extremity strength appears equal and symmetrical 5/5. She does complain of some left knee tenderness today. Gait is antalgic favoring her right over her left. ASSESSMENT: 1. Symptomatic lumbar radiculopathy. 2. Progressively worsening spinal stenosis of her lumbar spine. 3. Displacement of lumbar intervertebral disk with radiculopathy. 4. Lumbosacral spondylosis with radiculopathy. 5. Lumbar degeneration. 6. Chronic intractable pain. We reviewed the fact that opiate medications are being used to provide analgesia adequate to support activities of daily living, not attempting to achieve a specific pain score on the 0-10 Visual Analog Scale. The current opiate medications are providing sufficient analgesia to allow the patient to participate in activities of daily living. The patient is not exhibiting any aberrant behavior suggestive of drug diversion. The patient is not having any adverse reactions to medications. The patient is not suffering from daytime somnolence or mental acuity changes. The patient is managing opiate-induced constipation with appropriate xyun-oeq-rbgsbdp agents and dietary considerations. The patient was counseled on concern for caution with operating a motor vehicle while using opiate medications. A physical exam was performed and the patient's functional status was evaluated. All patients with back pain were advised against the bed rest greater than 4 days and were advised to return to normal activities. Pain score assessment was noted and the treatment plan was reviewed with the patient. All current medications, both prescribed and OTC were reviewed and reconciled on the electronic medical record. Tobacco screening was accomplished and smoking cessation was advised when indicated. BMI was noted and diet/exercise modification was recommended for all patients following outside normal parameters. I reviewed with the patient today their responsibilities to safeguard prescription medications, reviewed their responsibility to utilize medications only as prescribed by the physician. They are to seek and receive pain medications only from 1 physician group ( [facility]). They are to use [address] [place] [address] PAIN MANAGEMENT CONSULTATION Name: JOSESITO JULIO Room #: REG Pio Brown#: [id number] Admission: 01/16/19 ������������������ Attend Phys: Viv Mathews Discharge: ������������������ Date of : 46 Report #: [id number] pharmacy and keep the clinic informed if they change pharmacies. Their responsibilities include making followup visits in a timely fashion and to avoid abrupt discontinuation of medication usage. Their responsibilities further include bringing their medications (bottles from the pharmacy with residual pills) to the visit for possible confirmation of pill counts and the patient understands it is their responsibility to submit to random drug screens to ensure both that the medications prescribed are present, and that no other controlled substances are present. All prescriptions provided today were generated electronically. PLAN: 1. We discussed treatment options with the patient today. The patient tells me that she is doing well on her current medication regimen and her previous epidural last week helped her to 80%, here for medication refills. 2. Scripts given today for hydrocodone 7.5/325, #120 to be released today in 4-week and 8-week. Second medication is gabapentin 300 mg tablets, patient takes 3 in the morning, three midday and 5 at bedtime, quantity 330 with 2 additional refills. The patient tells me that her pharmacy requested 90 day, she is not wanting the 90 day, she does only want a month fill at a time. 3. The patient is seen with Dr. Chamberlain who collaborated care. The patient will return in 3-month time period for medications. ��������������������������������������������� <ELECTRONICALLY SIGNED> ���������������������������������������� By: Viv Mathews ��������������������������������������������� 01/17/19 0859 [id number] Viv Mathews /nt
== END ==
LOC: PAIN 07:10
DX: M51.26 Other intervertebral disc displacement, lumbar region (principal); M48.061 Spinal stenosis, lumbar region without neurogenic claudication; M47.27 Other spondylosis with radiculopathy, lumbosacral region; G89.29 Other chronic pain; M17.0 Bilateral primary osteoarthritis of knee; M47.816 Spondylosis without myelopathy or radiculopathy, lumbar region; Z88.2 Allergy status to sulfonamides; Z79.899 Other long term (current) drug therapy; Z79.891 Long term (current) use of opiate analgesic

== ENCOUNTER → 2019-04-25 | Outpatient (CLI) | payer OTHER, MEDICARE ==
[~2019-04-25] VITALS: Ht 172.7 cm; Wt 143.8 kg
[2019-04-25 08:39] VITALS: BP 136/81
--- NOTE | 2019-04-25 08:51 | NUR ---
Pain Clinic Assessment: 1. History of Osteoarthritis: Left Lower Extremity Right Lower Extremity History of Rheumatoid Arthritis: Not Applicable 2. Height: 5 ft. 8 in. 172.7 cm. Weight: 317.0 lb. oz. 143.791 kg. Patient's BMI: 48.2 3. Vital Signs: BP: 136/81 Pulse: 74 Resp: 22 Temp: 02 Sat: 96 ECG Mon: 4. Pain Intensity: 4-BACK, 7-LEFT KNEE 5. Fall Risk: Dizziness: N Needs help standing or walking: Y Fallen in the last 3 months: Y Fall risk comments: 6. Patient on Blood Thinner: None 7. History of Hypertension: Y 8. Opioid Therapy greater than 6 weeks: Y Opiate Contract Signed: 04/14/16 9. Risk Assessment Tool Provided: 0-LOW 10. Functional Assessment Tool: 11. Recreational Drug Use: Never Drug Type: Tobacco Use: Never Smoker Tobacco Type: Amount or Packs/day: How Many Years: Alcohol Use: No Frequency: Quant:
--- NOTE | 2019-04-26 08:58 | HPC ---
[facility] [address] [place] [address] PAIN MANAGEMENT CONSULTATION Name: JOSESITO JULIO Room #: REG [facility] Kevin#: [id number] Admission: 04/25/19 ������������������ Attend Phys: Viv Mathews Discharge: ������������������ Date of : 47 Report #: [id number] THIS REPORT FOR: //name// CC: Viv Mathews Vishnu Taylor DATE OF SERVICE: 04/25/2019 CHIEF COMPLAINT: Low back pain, bilateral extremity pain and paresthesias. HISTORY OF PRESENT ILLNESS: This is a very pleasant 74-year-old female who returns to the pain clinic today for refill of her medications. She tells me that her pain score today is a 4/10 in her back and a 7/10 in her left knee, which she has recently "tweaked." She tells me that overall, her pain is doing quite well. She is only able to stand for short periods of time before her back starts hurting and then, she needs to sit down, which immediately relieves her pain. She complains of a tightness, spasm, sharp pain in her lower back when her pain does start. She finds that the epidurals as well as her medications and sitting are very beneficial. She denies any problems with constipation or daytime sleepiness. ALLERGIES: SULFA. CURRENT LIST OF MEDICATIONS: Gabapentin 300 mg 3 tablets in the morning, 3 tablets midday and 5 tablets at bedtime; hydrocodone 7.5/325 three to four times a day, Synthroid 0.25 mg a day, Crestor 5 mg daily, carvedilol 12.5 mg b.i.d., vitamin D, hydrochlorothiazide 25 mg daily, Cymbalta 60 mg daily, clonazepam 1 mg at bedtime and Zetia 10 mg daily. PQRS: 1. She has osteoarthritis in her lower extremities. Denies rheumatoid arthritis. 2. Height is 5 feet 8 inches, weight is 317, BMI is 48. 3. Vital signs: Blood pressure 136/81, pulse is 74, respirations 22, oxygen sat is 96%. 4. Pain score is 4/10 in her back, 7/10 in her left knee. 5. Denies dizziness. Does need help walking and is using a walker today and has fallen in the last 3 months, but did not injure herself. 6. The patient is not on any blood thinners. Does have a history of hypertension. 7. Opioid therapy is greater than 6 weeks; therefore, an opioid signed contract is on the chart. Her risk assessment tool is low. Functional assessment is 40/70. 8. Recreational drug use, she denies. She is not a smoker and does not drink alcohol. [address] [address] PAIN MANAGEMENT CONSULTATION Name: JOSESITO JULIO Iris Room #: REG ELANA Brown#: [id number] Admission: 04/25/19 ������������������ Attend Phys: Viv Mathews Discharge: ������������������ Date of : 47 Report #: [id number] We did check the prescription monitoring system. The patient is filling appropriately for her medications and is due to be filled today. PHYSICAL EXAMINATION: GENERAL: This is a well-developed, well-nourished, well-hydrated 74-year-old female who appears her stated age, placing her current pain score at 4/10 in her back today. HEENT: Normocephalic, atraumatic. Pupils equal, round and reactive to light. EXTREMITIES: No cyanosis, no edema, no clubbing. MUSCULOSKELETAL: Gait is antalgic, favoring her right over her left. She complains of left knee tenderness today. Her lower extremity strength is judged to be 5/5 and is symmetrical. She complains of tenderness across her lumbar spine today. ASSESSMENT: 1. Symptomatic lumbar radiculopathy. 2. Progressively worse spinal stenosis of her lumbar spine. 3. Displacement of the lumbar intervertebral disk with radiculopathy. 4. Lumbosacral spondylosis with radiculopathy. 5. Lumbar degeneration. 6. Chronic intractable pain. 7. Opioid medications under terms of written opioid agreement. We reviewed the fact that opiate medications are being used to provide analgesia adequate to support activities of daily living, not attempting to achieve a specific pain score on the 0-10 Visual Analog Scale. The current opiate medications are providing sufficient analgesia to allow the patient to participate in activities of daily living. The patient is not exhibiting any aberrant behavior suggestive of drug diversion. The patient is not having any adverse reactions to medications. The patient is not suffering from daytime somnolence or mental acuity changes. The patient is managing opiate-induced constipation with appropriate omvj-eoy-ybtdfxz agents and dietary considerations. The patient was counseled on concern for caution with operating a motor vehicle while using opiate medications. A physical exam was performed and the patient's functional status was evaluated. All patients with back pain were advised against the bed rest greater than 4 days and were advised to return to normal activities. Pain score assessment was noted and the treatment plan was reviewed with the patient. All current medications, both prescribed and OTC were reviewed and reconciled on the electronic medical record. Tobacco screening was accomplished and smoking cessation was advised when indicated. BMI was noted and diet/exercise modification was recommended for all patients following outside normal parameters. I reviewed with the patient today their responsibilities to [address] [address] PAIN MANAGEMENT CONSULTATION Name: [facility]OSESITO JULIO [id number] Admission: 04/25/19 ������������������ Attend Phys: Viv RANJAN Reid Discharge: ������������������ Date of : 47 Report #: [id number] prescription medications, reviewed their responsibility to utilize medications only as prescribed by the physician. They are to seek and receive pain medications only from 1 physician group ( [facility]). They are to use 1 pharmacy and keep the clinic informed if they change pharmacies. Their responsibilities include making followup visits in a timely fashion and to avoid abrupt discontinuation of medication usage. Their responsibilities further include bringing their medications (bottles from the pharmacy with residual pills) to the visit for possible confirmation of pill counts and the patient understands it is their responsibility to submit to random drug screens to ensure both that the medications prescribed are present, and that no other controlled substances are present. All prescriptions provided today were generated electronically. PLAN: 1. We discussed treatment options with the patient today. The patient's last epidural injection was in December. She has done quite well since then, but feels that is beginning to wear off. May make an appointment for another injection soon. 2. We did talk about the patient's use of a walker and encouraged that maybe she gets one that does have a seat since prolonged walking does increase her pain and sitting does relieve it. She is using a walker today, which she finds very beneficial, but it does not have a seat. 3. We will collect a urine drug specimen on this patient today since it has been greater than 1 year. 4. Prescription given today for hydrocodone 7.5, #120 for release today, 4-week and 8-week. This places the patient at 30 morphine milligram equivalents well below the CDC guidelines. Gabapentin 300 mg tablets was also refilled for 330 with 2 additional refills. The patient takes 3 in the morning, 3 midday and 5 tablets at bedtime. 5. The patient is seen with Dr. Shahab Almeida who collaborated care today. ��������������������������������������������� <ELECTRONICALLY SIGNED> ���������������������������������������� By: Viv Mathews ��������������������������������������������� 04/26/19 0858 1022 0020 Viv Mathews /dimitri
== END ==
LOC: PAIN 06:50
DX: M47.26 Other spondylosis with radiculopathy, lumbar region (principal); M48.061 Spinal stenosis, lumbar region without neurogenic claudication; M51.16 Intervertebral disc disorders with radiculopathy, lumbar region; G89.4 Chronic pain syndrome; Z79.891 Long term (current) use of opiate analgesic; Z79.899 Other long term (current) drug therapy; Z88.2 Allergy status to sulfonamides

== ENCOUNTER → 2019-05-16 | Outpatient (CLI) | payer OTHER, MEDICARE ==
[~2019-05-16] VITALS: Ht 172.7 cm; Wt 142.0 kg
[2019-05-16 10:35] VITALS: BP 152/86
--- NOTE | 2019-05-16 10:37 | NUR ---
Pain Clinic Assessment: 1. History of Osteoarthritis: Left Lower Extremity Right Lower Extremity History of Rheumatoid Arthritis: Not Applicable 2. Height: 5 ft. 8 in. 172.7 cm. Weight: 313.0 lb. oz. 141.976 kg. Patient's BMI: 47.6 3. Vital Signs: BP: 152/86 Pulse: 78 Resp: 16 Temp: 02 Sat: 94 ECG Mon: 4. Pain Intensity: 4 5. Fall Risk: Dizziness: N Needs help standing or walking: N Fallen in the last 3 months: N Fall risk comments: 6. Patient on Blood Thinner: None 7. History of Hypertension: Y 8. Opioid Therapy greater than 6 weeks: Y Opiate Contract Signed: 04/14/16 9. Risk Assessment Tool Provided: 0-LOW 10. Functional Assessment Tool: 11. Recreational Drug Use: Never Drug Type: Tobacco Use: Never Smoker Tobacco Type: Amount or Packs/day: How Many Years: Alcohol Use: No Frequency: Quant:
--- NOTE | 2019-05-17 07:46 | HPC ---
[facility] [address] [place] [address] PAIN MANAGEMENT CONSULTATION Name: JOSESITO JULIO Room #: REG Pio AlexAlex#: [id number] Admission: 05/16/19 Attend Phys: Shahab Almeida DO Discharge: Date of : 47 Report #: [id number] THIS REPORT FOR: //name// CC: Vishnu De La Paz ANP Shahab Almeida DATE OF SERVICE: 05/16/2019 REFERRING PHYSICIAN: Marilee De La Paz NP PRIMARY CARE PHYSICIAN: Vishnu Taylor MD CHIEF COMPLAINT: Low back pain, bilateral lower extremity pain. HISTORY OF PRESENT ILLNESS: As you know, the patient is a very pleasant 74-year-old female returning in followup visit to undergo lumbar epidural injection under fluoroscopic guidance. She is reporting pain today at 4/10. She indicates good efficacy with previous lumbar epidural injection, noting improvement of 65-70%. Unfortunately, the patient's symptoms have begun to return. She is now indicating pain as numbness, tingling, aching, spasming, sharp, cramping in the calves and toes. Pain is exacerbated with walking, standing, coughing. It improves with epidural injections, sitting down and lying down and medications. She returns today to undergo lumbar epidural injection under fluoroscopic guidance to address recurrent lumbar radicular symptoms. ALLERGIES: SULFA. CURRENT MEDICATIONS: See chart. SOCIAL HISTORY: The patient denies tobacco, alcohol, IV or illicit drug use. She is retired, retired years ago, unaccompanied today. IMAGING: No new imaging available. PQRS: The patient has known osteoarthritic changes of the lumbar spine, bilateral lower extremities involving both the hips and the ankles as well as knees. The patient places pain intensity at 4/10. She is not a fall risk, has not had a fall in the last 3 months. She is utilizing a roller walker for ambulation. She is not on blood thinners. She is treated for hypertension. She is on chronic opioids and has a low opioid addiction potential. Pain impact score indicated at 40/70, moderate interference of daily activities secondary to pain. [address] [address] PAIN MANAGEMENT CONSULTATION Name: JOSESITO JULIO Room #: REG [facility]#: [id number] Admission: 05/16/19 Attend Phys: Shahab Almeida DO Discharge: Date of : 47 Report #: [id number] PHYSICAL EXAMINATION: VITAL SIGNS: Blood pressure 152/86, pulse 78, respiratory rate 16 and unlabored. The patient is 94% on room air. Height 5 feet 8 inches tall, weight 313 pounds, BMI calculated 47.6. GENERAL: Well-developed, well-nourished, well-hydrated, class 3 morbidly obese 74-year-old female appearing stated age, pain is rated today at 4/10. HEENT: Normocephalic, atraumatic. Pupils equal, round, reactive to light. EXTREMITIES: Show no clubbing, no cyanosis, and no edema. MUSCULOSKELETAL: Lower extremity strength appears symmetrical 5/5. She is intact to light touch from L1 through S2 dermatomes. Seated straight leg raising positive. Supine straight leg raising positive. Yessica's test negative. Modified Gaenslen's positive for axial low back pain. Ankle clonus negative. Babinski is negative. Gait is antalgic, utilizing a roller walker for ambulation. Stance is slightly forward flexed lumbar spine, loss of lordotic curvature. ASSESSMENT: 1. Symptomatic lumbar radiculopathy. 2. Progressively worsening spinal stenosis of lumbar spine. 3. Displacement of lumbar intervertebral disk with radiculopathy. 4. Lumbosacral spondylosis with radiculopathy. 5. Facet arthropathy of the lumbar spine. 6. Chronic intractable pain. PLAN: 1. The patient returns today in followup visit to undergo next in the series of lumbar epidural injections under fluoroscopic guidance. As you are aware, the patient has done very well with previous epidural injections. This in conjunction with medication management is allowing the patient to go about the majority of her activities of daily living without significant pain interference. She is pleased with response to the combination of treatments at this point, does not wish to make any further alteration in treatment at this juncture. She returns today to undergo epidural injection under fluoroscopic guidance. She has been advised risks and benefits of the procedure, states understood and wished to proceed. 2. No medication changes made at today's visit. The patient will continue current medical therapy as prior prescribed. 3. We will see the patient back in followup visit on an as needed basis for possible next in the series of lumbar epidural injections under fluoroscopic guidance. DESCRIPTION OF PROCEDURE: L5-S1 interlaminar epidural steroid injection under fluoroscopic guidance. After obtaining written consent, the patient was taken back to fluoroscopy suite, placed in prone position with pillow under abdomen to decrease lumbar [address] [address] PAIN MANAGEMENT CONSULTATION Name: JOSESITO JULIO Room #: REG CLPio Suarez#: [id number] Admission: 05/16/19 Attend Phys: Shahab Almeida DO Discharge: Date of : 47 Report #: [id number] lordosis. Skin overlying lumbosacral area then prepped and draped in aseptic fashion. Lumbar intervertebral spaces identified by AP fluoroscopy. Skin and subcutaneous tissue overlying target site of injection anesthetized with 3 mL of 1% lidocaine. A 20-gauge 4-1/2 inch Tuohy needle advanced under fluoroscopic guidance towards the epidural space using a parasagittal approach. Epidural space identified using loss of resistance to air technique. After negative aspiration for heme or cerebrospinal fluid, 1 mL of Omnipaque injected. Lumbar epidurogram confirmed using both AP and lateral fluoroscopy. After negative aspiration for heme or cerebrospinal fluid, 5 mL of a solution containing 2 mL 40 mg per mL, 80 mg total triamcinolone and 3 mL of lidocaine 1% injected slowly. Needle then retracted approximately half way, flushed with 1 mL of 1% lidocaine and then removed. Sterile bandage placed over injection site. No new motor deficits present in lower extremity following procedure. The patient tolerated the procedure well, carefully escorted to recovery room in stable condition. No apparent complications. After meeting our discharge criteria, the patient discharged home. <ELECTRONICALLY SIGNED> By: Shahab Almeida DO 05/17/19 0746 1215 [id number] Shahab Almeida DO /nt
== END | disposition home or self-care (01) ==
LOC: PAIN 06:49
DX: M51.16 Intervertebral disc disorders with radiculopathy, lumbar region (principal); M48.061 Spinal stenosis, lumbar region without neurogenic claudication; M47.27 Other spondylosis with radiculopathy, lumbosacral region; M47.26 Other spondylosis with radiculopathy, lumbar region; G89.29 Other chronic pain; I10 Essential (primary) hypertension; M19.90 Unspecified osteoarthritis, unspecified site; Z88.2 Allergy status to sulfonamides; Z79.891 Long term (current) use of opiate analgesic; Z98.890 Other specified postprocedural states; Z79.899 Other long term (current) drug therapy

== ENCOUNTER → 2019-07-19 | Outpatient (CLI) | payer OTHER, MEDICARE ==
[~2019-07-19] VITALS: Ht 172.7 cm; Wt 146.4 kg
[~2019-07-19] MED LIST changes: +NEURONTIN 300M300 M2 PO
[2019-07-19 12:43] VITALS: BP 149/76
--- NOTE | 2019-07-19 12:45 | NUR ---
Pain Clinic Assessment: 1. History of Osteoarthritis: Left Lower Extremity Right Lower Extremity History of Rheumatoid Arthritis: Not Applicable 2. Height: 5 ft. 8 in. 172.7 cm. Weight: 322.8 lb. oz. 146.422 kg. Patient's BMI: 49.1 3. Vital Signs: BP: 149/76 Pulse: 71 Resp: 18 Temp: 02 Sat: 100 ECG Mon: 4. Pain Intensity: 5 5. Fall Risk: Dizziness: N Needs help standing or walking: N Fallen in the last 3 months: N Fall risk comments: 6. Patient on Blood Thinner: None 7. History of Hypertension: Y 8. Opioid Therapy greater than 6 weeks: Y Opiate Contract Signed: 04/14/16 9. Risk Assessment Tool Provided: 0-LOW 10. Functional Assessment Tool: 11. Recreational Drug Use: Never Drug Type: Tobacco Use: Never Smoker Tobacco Type: Amount or Packs/day: How Many Years: Alcohol Use: No Frequency: Quant:
--- NOTE | 2019-07-21 12:46 | HPC ---
[facility] [address] [place] [address] PAIN MANAGEMENT CONSULTATION Name: JOSESITO JULIO Room #: REG [facility] Kevin#: [id number] Admission: 07/19/19 Attend Phys: Viv Mathews Discharge: Date of : 47 Report #: [id number] THIS REPORT FOR: //name// CC: Viv Taylor DATE OF SERVICE: 07/19/2019 CHIEF COMPLAINT: Low back pain, bilateral extremity pain and paresthesias. HISTORY OF PRESENT ILLNESS: This is a very pleasant 74-year-old female who returns to the pain clinic today for refill of her medications that she uses to help treat her ongoing low back and left knee pain. She rates her pain score 5/10 today, mostly located in her left knee. She reports that she recently had Synvisc injections x 3. They were not as beneficial as they had been in the past. It is a sharp spasm pain that she is experiencing worse with walking and standing. She finds that the epidurals for her lower back are helpful as well as sitting, which is beneficial for her knee and her medication as well. The patient does tell me she is thinking about having her knee replaced since the injections have not been as beneficial as they used to be in helping her with her ongoing pain. She denies any problems with constipation or daytime sleepiness and today would just like refills of her medication. ALLERGIES: SULFA. CURRENT LIST OF MEDICATIONS: Gabapentin 300 mg tablets 3 in the morning, 3 midday and 5 at night, hydrocodone 7.5/325 four times a day p.r.n., Synthroid 25 mcg daily, Crestor 5 mg daily, Coreg 12.5 mg b.i.d., vitamin D, hydrochlorothiazide 25 mg daily, Cymbalta 60 mg daily, clonazepam 1 mg at bedtime, Zetia 10 mg daily. PQRS: 1. She has osteoarthritis of her bilateral lower extremities, hips and knees. Denies any rheumatoid arthritis. 2. Height is 5 feet 8 inches, weight is 322, BMI is 49. 3. Vital signs 149/76, pulse is 71, respirations 18, oxygen sat is 100. 4. Pain score is 5/10. 5. Denies dizziness. She uses a walker with walking and standing. Has not fallen in the last 3 months. 6. The patient is on hypertension medicines, but does not take blood thinners. 7. Opioid therapy is greater than 6 weeks; therefore, an opioid signed contract is on the chart. Risk assessment tool is low. Functional assessment is 40/70. 8. Recreational drug use, she denies. She is not a smoker and she does not drink alcohol. [address] [address] PAIN MANAGEMENT CONSULTATION Name: NORIJOSESITO A Room #: REG [facility] Brown#: [id number] Admission: 07/19/19 Attend Phys: Viv Mathews Discharge: Date of : 46 Report #: [id number] According to the prescription monitoring system, the patient is filling appropriately for her medications in a timely fashion. We did check a random drug screen on her recently. We are waiting for the results. PHYSICAL EXAMINATION: GENERAL: This is a well-developed, well-nourished, well-hydrated 74-year-old female who appears her stated age, placing her current pain score of 5/10 today. HEENT: Normocephalic, atraumatic. Extraocular eye muscles are intact. Mucous membranes are moist. EXTREMITIES: No clubbing, no cyanosis, no edema. MUSCULOSKELETAL: Lower extremity strength appear equal and symmetrical at 5/5. She is intact to light touch L1 through S2 dermatomes. Seated straight leg raising is negative. Gait is antalgic favoring the right lower extremity over the left. Complains of left knee tenderness today using a walker. IMPRESSION: 1. Symptomatic lumbar radiculopathy. 2. Progressively worse spinal stenosis of the lumbar spine. 3. Displacement of lumbar intervertebral disk with radiculopathy. 4. Lumbosacral spondylosis with radiculopathy. 5. Lumbar degeneration. 6. Osteoarthritis involving multiple joints. 7. Chronic intractable pain. 8. Opioid medications under terms of written opioid agreement. We reviewed the fact that opiate medications are being used to provide analgesia adequate to support activities of daily living, not attempting to achieve a specific pain score on the 0-10 Visual Analog Scale. The current opiate medications are providing sufficient analgesia to allow the patient to participate in activities of daily living. The patient is not exhibiting any aberrant behavior suggestive of drug diversion. The patient is not having any adverse reactions to medications. The patient is not suffering from daytime somnolence or mental acuity changes. The patient is managing opiate-induced constipation with appropriate bmop-jkw-kvyqzam agents and dietary considerations. The patient was counseled on concern for caution with operating a motor vehicle while using opiate medications. A physical exam was performed and the patient's functional status was evaluated. All patients with back pain were advised against the bed rest greater than 4 days and were advised to return to normal activities. Pain score assessment was noted and the treatment plan was reviewed with the patient. All current medications, both prescribed and OTC were reviewed and reconciled on the electronic medical record. Tobacco screening was accomplished and smoking cessation was advised when indicated. BMI was noted and diet/exercise modification was recommended for all patients following outside normal [address] [place] [address] PAIN MANAGEMENT CONSULTATION Name: JOSESITO JULIO [facility] [id number] Admission: 07/19/19 Attend Phys: Viv Mathews Discharge: Date of : 46 Report #: [id number] parameters. I reviewed with the patient today their responsibilities to safeguard prescription medications, reviewed their responsibility to utilize medications only as prescribed by the physician. They are to seek and receive pain medications only from 1 physician group ( [facility]). They are to use 1 pharmacy and keep the clinic informed if they change pharmacies. Their responsibilities include making followup visits in a timely fashion and to avoid abrupt discontinuation of medication usage. Their responsibilities further include bringing their medications (bottles from the pharmacy with residual pills) to the visit for possible confirmation of pill counts and the patient understands it is their responsibility to submit to random drug screens to ensure both that the medications prescribed are present, and that no other controlled substances are present. All prescriptions provided today were generated electronically. PLAN: 1. We discussed treatment options with the patient today. The patient finds that her hydrocodone 7.5/325 up to 4 tablets a day is very beneficial in helping control most of her pain. Scripts were renewed today for #120 for today, 4-week and 8-week. The patient denies any problems with constipation or daytime sleepiness from this medication. 2. Scripts given for gabapentin 300 mg tablets 3 in the morning, 3 midday and 5 at night, quantity 330 with 6 additional refills. The patient fills these on a monthly basis. 3. We did discuss the patient's ongoing left knee pain and the fact that injections are no longer as beneficial as they have been in the past. I believe it is time for her to discuss with her surgeon about having her knee replaced. I believe she is a good candidate for this. She has done well with hip replacements in the past and had good outcomes. She is fairly active. Her knee is only slowing her down. The patient verbalizes understanding. She will talk with Dr. Copeland about it. 4. The patient is seen in collaboration today with Dr. Azael Dennis who is covering for Dr. Shahab Almeida. He did see the patient as well today when he collaborated care. <ELECTRONICALLY SIGNED> By: Viv Mathews 07/21/19 1246 1357 20 Viv Mathews /nt
== END ==
LOC: PAIN 07:03
DX: M51.16 Intervertebral disc disorders with radiculopathy, lumbar region (principal); M47.27 Other spondylosis with radiculopathy, lumbosacral region; M48.061 Spinal stenosis, lumbar region without neurogenic claudication; M19.90 Unspecified osteoarthritis, unspecified site; G89.4 Chronic pain syndrome; Z79.891 Long term (current) use of opiate analgesic; Z88.2 Allergy status to sulfonamides; Z79.899 Other long term (current) drug therapy

== ENCOUNTER → 2019-08-22 | Outpatient (CLI) | payer OTHER, MEDICARE ==
[~2019-08-22] VITALS: Ht 172.7 cm; Wt 145.8 kg
[2019-08-22 10:33] VITALS: BP 131/70
--- NOTE | 2019-08-22 10:38 | NUR ---
Pain Clinic Assessment: 1. History of Osteoarthritis: Left Lower Extremity Right Lower Extremity History of Rheumatoid Arthritis: DENIES 2. Height: 5 ft. 8 in. 172.7 cm. Weight: 321.4 lb. oz. 145.787 kg. Patient's BMI: 48.9 3. Vital Signs: BP: 131/70 Pulse: 76 Resp: 22 Temp: 02 Sat: 95 ECG Mon: 4. Pain Intensity: 5 5. Fall Risk: Dizziness: N Needs help standing or walking: Y Fallen in the last 3 months: Y Fall risk comments: 6. Patient on Blood Thinner: None 7. History of Hypertension: Y 8. Opioid Therapy greater than 6 weeks: Y Opiate Contract Signed: 04/14/16 9. Risk Assessment Tool Provided: 0-LOW 10. Functional Assessment Tool: 11. Recreational Drug Use: Never Drug Type: Tobacco Use: Never Smoker Tobacco Type: Amount or Packs/day: How Many Years: Alcohol Use: No Frequency: Quant:
--- NOTE | 2019-08-22 16:27 | HPC ---
[facility] [address] [place] [address] PAIN MANAGEMENT CONSULTATION Name: JOSESITO JULIO Room #: REG [facility].#: [id number] Admission: 08/22/19 Attend Phys: Shahab Almeida DO Discharge: Date of : 46 Report #: [id number] THIS REPORT FOR: //name// CC: Vishnu Almeida DATE OF SERVICE: 08/22/2019 CHIEF COMPLAINT: Low back pain, bilateral lower extremity pain. HISTORY OF PRESENT ILLNESS: As you know, the patient is a very pleasant 74-year-old female who returns today in followup visit to undergo next in the series of lumbar epidural injections under fluoroscopic guidance. The patient states the combination of lumbar epidural injections along with medication management provides up to 70% improvement in overall pain. She returns today in followup visit to undergo next in the series of lumbar epidural injections to build on success of previous intervention. The patient is placing pain score today 5/10. Pain is exacerbated with walking and standing, improves with epidurals, sitting, lying down and medications. She returns today to undergo next in the series of lumbar epidural injections under fluoroscopic guidance to address residual 5/10 pain. ALLERGIES: SULFA. CURRENT MEDICATIONS: Zetia 10 mg once a day, clonazepam 1 mg p.r.n., duloxetine 60 mg once a day, hydrochlorothiazide 25 mg per day, vitamin D 400 units once a day, carvedilol 12.5 mg twice a day, lovastatin 5 mg once a day, levothyroxine 25 mcg per day, gabapentin 900 mg in morning, 900 mg at noon, 1500 mg at night, hydrocodone/acetaminophen 7.5/325 one tab every 6 hours p.r.n. pain. SOCIAL HISTORY: The patient denies tobacco, alcohol, IV or illicit drug use. She is retired, retired years ago, unaccompanied today. IMAGING: No new imaging available. PQRS: The patient has known arthritic changes of the lumbar spine, bilateral hips and knees. No rheumatoid arthritis. She is not a fall risk, but did have a fall in the last 3 months, apparently tripped over some objects at home. She does use a roller walker for ambulation. She is placing pain intensity 5/10 today. She is not on blood thinners, but is treated for hypertension. She is on chronic opioids with a low opioid addiction potential. Pain impact score 38/70, indicating moderate interference of daily activities secondary to pain. PHYSICAL EXAMINATION: [facility] [address] [place] [address] PAIN MANAGEMENT CONSULTATION Name: JOSESITO JULIO Room #: REG [facility].#: [id number] Admission: 08/22/19 Attend Phys: Shahab Almeida DO Discharge: Date of : 46 Report #: [id number] VITAL SIGNS: Blood pressure 131/70, pulse 76, respiratory rate 22 and unlabored. The patient is 95% on room air. Height 5 feet 8 inches tall, weight 321.4 pounds, BMI calculated 48.9. GENERAL: Well-developed, well-nourished, well-hydrated, class 3 morbidly obese 74-year-old female appearing stated age, pain is rated today 5/10. HEENT: Normocephalic, atraumatic. Pupils equal, round, reactive to light. EXTREMITIES: Show no clubbing, no cyanosis and no edema. MUSCULOSKELETAL: Lower extremity strength is symmetrical 5/5, though deconditioning noted bilaterally. Seated straight leg raising negative. Supine straight leg raising positive. Yessica's test is negative. Modified Gaenslen's positive for axial low back pain. Ankle clonus negative. Babinski is negative. Gait is antalgic, appearing to favor left lower extremity over right today. ASSESSMENT: 1. Symptomatic lumbar radiculopathy. 2. Progressively worsening spinal stenosis of the lumbar spine. 3. Displacement of lumbar intervertebral disk with radiculopathy. 4. Lumbosacral spondylosis with radiculopathy. 5. Lumbar degeneration. 6. Chronic intractable pain. PLAN: 1. The patient returns today in followup visit requesting to undergo lumbar epidural injection under fluoroscopic guidance. The patient has noted excellent benefit with previous epidural injections, hopeful to see similar improvement today. She has been advised of risks and benefits of the procedure, states understood and wished to proceed. 2. No medication changes made at today's visit. The patient will continue current medical therapy as previously prescribed. 3. We will see the patient back in followup visit on an as needed basis for the possible next in the series of epidural injections under fluoroscopic guidance. Otherwise, we will see her back for her normal medication management refills at the previously agreed upon date. PROCEDURE: L5-S1 parasagittal epidural steroid injection under fluoroscopic guidance. DESCRIPTION OF PROCEDURE: After obtaining written consent, the patient was taken back to fluoroscopy suite, placed in prone position with pillow under abdomen to decrease lumbar lordosis. Skin overlying lumbosacral area then prepped and draped in aseptic fashion. The L5-S1 vertebral interspace identified by AP fluoroscopy. Skin and subcutaneous tissue overlying target site of injection anesthetized with 3 mL of 1% lidocaine. A 20-gauge 4-1/2 inch Tuohy needle advanced under fluoroscopic guidance towards the epidural space using a parasagittal approach. Epidural space identified [facility] [address] [place] [address] PAIN MANAGEMENT CONSULTATION Name: NORIJOSESITO A Room #: REG [facility] Kevin#: [id number] Admission: 08/22/19 Attend Phys: Shahab Almeida DO Discharge: Date of : 47 Report #: [id number] using loss of resistance to air technique. After negative aspiration for heme or cerebrospinal fluid, 1 mL of Omnipaque injected. Lumbar epidurogram confirmed using both AP and lateral fluoroscopy. After negative aspiration for heme or cerebrospinal fluid, 5 mL of a solution containing 2 mL 40 mg per mL, 80 mg total triamcinolone along with 3 mL lidocaine 1% injected slowly. Needle retracted nursing home, flushed with 1 mL of 1% lidocaine and then removed. Sterile bandage placed over injection site. There were no new motor deficits present in the lower extremities following procedure. The patient tolerated procedure well, carefully escorted to recovery room in stable condition. No apparent complications. After meeting discharge criteria, the patient discharged home. <ELECTRONICALLY SIGNED> By: Shahab Alemida DO 08/22/19 1627 1210 1545 Shahab Almeida DO /nt
== END | disposition home or self-care (01) ==
LOC: PAIN 06:50
DX: M51.16 Intervertebral disc disorders with radiculopathy, lumbar region (principal); M47.27 Other spondylosis with radiculopathy, lumbosacral region; M48.061 Spinal stenosis, lumbar region without neurogenic claudication; G89.29 Other chronic pain; I10 Essential (primary) hypertension; M19.90 Unspecified osteoarthritis, unspecified site; Z98.890 Other specified postprocedural states; Z88.2 Allergy status to sulfonamides; Z79.899 Other long term (current) drug therapy; Z79.891 Long term (current) use of opiate analgesic

== ENCOUNTER → 2019-10-18 | Outpatient (CLI) | payer OTHER, MEDICARE ==
[~2019-10-18] VITALS: Ht 172.7 cm; Wt 141.5 kg
[~2019-10-18] MED LIST changes: +VALACYCLOVIR1000 MG PO
[2019-10-18 14:20] VITALS: BP 160/67
--- NOTE | 2019-10-18 14:24 | NUR ---
Pain Clinic Assessment: 1. History of Osteoarthritis: Left Lower Extremity Right Lower Extremity History of Rheumatoid Arthritis: DENIES 2. Height: 5 ft. 8 in. 172.7 cm. Weight: 312.0 lb. oz. 141.523 kg. Patient's BMI: 47.5 3. Vital Signs: BP: 160/67 Pulse: 70 Resp: 16 Temp: 02 Sat: 91 ECG Mon: 4. Pain Intensity: 5 5. Fall Risk: Dizziness: N Needs help standing or walking: Y Fallen in the last 3 months: N Fall risk comments: 6. Patient on Blood Thinner: None 7. History of Hypertension: Y 8. Opioid Therapy greater than 6 weeks: Y Opiate Contract Signed: 04/14/16 9. Risk Assessment Tool Provided: 1- LOW 10. Functional Assessment Tool: 11. Recreational Drug Use: Never Drug Type: Tobacco Use: Never Smoker Tobacco Type: Amount or Packs/day: How Many Years: Alcohol Use: No Frequency: Quant:
--- NOTE | 2019-10-19 08:46 | HPC ---
[facility] [place] [address] [place] [address] PAIN MANAGEMENT CONSULTATION Name: JOSESITO JULIO Room #: REG [facility] Kevin#: [id number] Admission: 10/18/19 Attend Phys: Viv Mathews Discharge: Date of : 47 Report #: [id number] THIS REPORT FOR: //name// CC: Viv Almeida DO DATE OF SERVICE: 10/18/2019 CHIEF COMPLAINT: Low back pain, bilateral lower extremity pain, herpes zoster. HISTORY OF PRESENT ILLNESS: This is a very pleasant 74-year-old female who returns to the pain clinic today for refill of her medications that she takes to help treat her ongoing low back pain. The patient reports a pain score of 5/10 today. She feels that the lumbar epidural steroid injection that Dr. Shahab Almeida performed on her in July was very beneficial. She was able to make it through the holidays with limited pain. She feels like it is still continuing to work. She is able to recover quicker after resting in her low back. She feels that when she walks for prolonged periods and stands for prolonged periods that is when her pain is increased, again rating at a 5/10 today, but better when she does take periodic epidurals as well as sitting and lying down. She does use a walker at all times, which has a seat so she is able to sit when needed. The patient does report that she was recently diagnosed with herpes zoster or shingles on the of this month. She is currently taking a Medrol Dosepak as well as valacyclovir for this outbreak on her right upper back following the T5 dermatomal distribution. ALLERGIES: SULFA. CURRENT LIST OF MEDICATIONS: Valacyclovir 1000 mg daily, hydrocodone 7.5/325 p.r.n., gabapentin 900 mg at noon and 1500 mg at bedtime, Synthroid, Crestor, Coreg, vitamin D, hydrochlorothiazide, Cymbalta, clonazepam and Zetia. PQRS: 1. She has known arthritic changes of the lumbar spine, bilateral hips and knees. Denies any rheumatoid arthritis. 2. Height is 5 feet 8 inches, weight is 312, BMI is 47. 3. Vital signs, 160/67, pulse is 70, respirations 16, oxygen sat is 91. 4. Pain score is 5/10. 5. Denies dizziness. Does use a walker at all times. Has not fallen in the last 3 months. 6. The patient is not on any blood thinners, but does [place] [address] PAIN MANAGEMENT CONSULTATION Name: JOSESITO JULIO [facility]: [id number] Admission: 10/18/19 Attend Phys: Viv Mathews Discharge: Date of : 47 Report #: [id number] 7. Opiate therapy is greater than 6 weeks; therefore, an opioid signed contract is on the chart. Risk assessment tool is low. Functional assessment is 38/70. 8. Recreational drug use, she denies. She is not a smoker and does not drink alcohol. According to the prescription monitoring system, the patient is filling appropriately for her medications. She is due to fill those this weekend. PHYSICAL EXAMINATION: GENERAL: This is alert and orientated, well-developed, well-nourished, well-hydrated, class 3, morbidly obese 74-year-old female who is rating her pain score at 5/10 today. HEENT: Normocephalic, atraumatic. Pupils equal, round and reactive to light. EXTREMITIES: No clubbing, no cyanosis, no edema. MUSCULOSKELETAL: Lower extremity strength is symmetrical, though deconditioned bilaterally. She does use a walker and her gait is antalgic. Modified Gaenslen is positive for axial back pain. She does have pustules located on her left scapular area following the T5 dermatomal distribution with her herpes zoster. Seated straight leg raising is negative. Supine straight leg raising is positive. ASSESSMENT: 1. Symptomatic lumbar radiculopathy. 2. Progressively worse spinal stenosis of lumbar spine. 3. Displacement of lumbar intervertebral disk with radiculopathy. 4. Lumbosacral spondylosis with radiculopathy. 5. Lumbar degeneration. 6. Chronic intractable pain. 7. Recent diagnosis of herpes zoster with ongoing treatment. 8. Medical management under terms of written opioid agreement. We reviewed the fact that opiate medications are being used to provide analgesia adequate to support activities of daily living, not attempting to achieve a specific pain score on the 0-10 Visual Analog Scale. The current opiate medications are providing sufficient analgesia to allow the patient to participate in activities of daily living. The patient is not exhibiting any aberrant behavior suggestive of drug diversion. The patient is not having any adverse reactions to medications. The patient is not suffering from daytime somnolence or mental acuity changes. The patient is managing opiate-induced constipation with appropriate dqhq-xul-cfogmwb agents and dietary considerations. The patient was counseled on concern for caution with operating a motor vehicle while using opiate medications. PLAN: 1. We will refill her hydrocodone 7.5/325, #120, for today 4 week an 8-week release. Dr. Almeida will send these electronically to her pharmacy. [address] [address] PAIN MANAGEMENT CONSULTATION Name: JOSESITO JULIO Room #: [facility] [id number] Admission: 10/18/19 Attend Phys: Viv Mathews Discharge: Date of : 47 Report #: [id number] 2. I encouraged the patient to continue and finish all of her antiviral medication as well as her Medrol Dosepak for her shingles outbreak. I instructed the patient to call our office if the pain continues. She is already on a neuropathic medicine, which I believe will be helpful for this pain as well. 3. The patient would like another epidural soon. I encouraged her to wait until the steroids are out of her system. She finds these epidural are very beneficial having them every 3-4 months. 4. The patient is seen today in collaboration with Dr. Shahab Almeida who did see the patient as well today. <ELECTRONICALLY SIGNED> By: Viv Mathews 10/19/19 0846 1502 2224 Viv Mathews /dimitri
== END ==
LOC: PAIN 10:02
DX: M51.16 Intervertebral disc disorders with radiculopathy, lumbar region (principal); M47.27 Other spondylosis with radiculopathy, lumbosacral region; M48.061 Spinal stenosis, lumbar region without neurogenic claudication; G89.4 Chronic pain syndrome

== ENCOUNTER → 2020-01-10 | Outpatient (CLI) | payer OTHER, MEDICARE ==
[~2020-01-10] VITALS: Ht 172.7 cm; Wt 139.2 kg
--- NOTE | ~2020-01-10 | HPC ---
[facility] [address] [place] [address] PAIN MANAGEMENT CONSULTATION Name: JOSESITO JULIO Room #: REG ELANA Herman.#: [id number] Admission: 01/10/20 Attend Phys: Shahab Almeida DO Discharge: Date of : 47 Report #: [id number] THIS REPORT FOR: cc: Vishnu Taylor MD, Bernard O. MD Johnson, James E. DO ~ CC: Vishnu Almeida DATE OF SERVICE: 01/10/2020 CHIEF COMPLAINT: Low back pain, bilateral lower extremity pain and paresthesias. HISTORY OF PRESENT ILLNESS: As you know, the patient is a very pleasant 74-year-old female who returns today in followup visit requesting refill of medications. She feels medications are working beneficially for pain control. Unfortunately, her generalized pain has increased with changes in weather lately. She states this typically happens in the spring, which is consistent with chronic pain syndromes. She reports no new injury or trauma that may have led to symptom development. She continues to experience classic lumbar radicular symptoms involving low back and bilateral lower extremities consistent with her progressively worsening central canal stenosis. She returns today in followup visit for medication management and to discuss the possibility of undergoing a lumbar epidural injection in the very near future and what restrictions and regulations might be in place due to COVID. ALLERGIES: SULFA. CURRENT MEDICATIONS: Zetia 10 mg once a day, clonazepam 1 mg p.o. at bedtime, duloxetine 60 mg once a day, hydrochlorothiazide 25 mg per day, vitamin D 400 units per day, carvedilol 12.5 mg twice a day, rosuvastatin 5 mg once a day, levothyroxine 25 mcg per day, gabapentin 900 mg morning, 900 mg at noon, 1500 mg at night; hydrocodone 10/325 one tab p.o. q.6 hours p.r.n. pain. SOCIAL HISTORY: The patient denies tobacco, alcohol, IV or illicit drug use. She is retired, retired years ago. She is unaccompanied today. IMAGING: No new imaging available. PQRS: The patient has known arthritic changes of the lumbar spine, bilateral hips, bilateral knees and bilateral thumbs. No rheumatoid arthritis. She is placing pain intensity today at 7/10. She is a fall risk, but has not had a fall in last 3 months. She is utilizing a roller walker for ambulation. She is not on blood thinners, but is treated for hypertension. She is on [address] [address] PAIN MANAGEMENT CONSULTATION Name: [facility]OSESITO JULIO [facility] [id number] Admission: 01/10/20 Attend Phys: Shahab Almeida DO Discharge: Date of : 47 Report #: [id number] opioids and has been so since 04/14/2016. She has a low opioid addiction potential. Pain impact scores 38/70, moderate interference of daily activities secondary to pain. PHYSICAL EXAMINATION: VITAL SIGNS: Blood pressure 132/81, pulse 86, respiratory rate 20 and unlabored. The patient is 96% on room air. Height 5 feet 8 inches tall, weight 306.8 pounds, BMI calculated 46.7. GENERAL: Well-developed, well-nourished, well-hydrated, class 3 morbidly obese 74-year-old female appearing stated age. Pain is rated today at 7/10. HEENT: Normocephalic, atraumatic. Pupils equal, round, reactive to light. Extraocular muscles are intact. Speech fluent. EXTREMITIES: Show no clubbing, no cyanosis, and no edema. MUSCULOSKELETAL: Lower extremity strength appears symmetrical, but deconditioned. She is utilizing a roller walker for ambulation. Gait remains antalgic. Stance is forward flexed with loss of lordotic curvature. Seated straight leg raising negative. Supine straight leg raising remains positive bilaterally. This is noted at approximately 50 degree angle. This is somewhat limited by body habitus. Ankle clonus negative. Babinski is negative. ASSESSMENT: 1. Symptomatic lumbar radiculopathy. 2. Severe and progressively worsening spinal stenosis of the lumbar spine. 3. Displacement of lumbar intervertebral disk with radiculopathy. 4. Lumbosacral spondylosis with radiculopathy. 5. Lumbar degeneration. 6. Chronic intractable pain. PLAN: 1. The patient returns today in followup visit indicating a pain level of 7/10. She is describing pain that is generalized in nature and exacerbated by changes in weather. This may be related to more of a myofascial syndrome than it is to the spinal stenosis. The patient has a known low vitamin D levels and this could be contributing to symptoms. We have advised the patient to make adjustments in her diet to try to gain increase in dietary vitamin D. She could also take supplementation, but will have to spend at least 10-15 minutes per day in full spectrum light to be able to convert this to the active form. This may be contributing significantly to her pain. I believe this would be a conservative treatment approach. I do not feel that further adjustments in medication management are necessary for myofascial symptoms. 2. The patient continues to complain of low back pain, bilateral lower extremity pain and weakness consistent with central canal stenosis. She is requesting refill of her medications as she does find this beneficial, but also wishes to discuss the potential risk and benefits of undergoing a lumbar epidural injection. During the COVID restrictions, I advised the patient the restrictions for her would include her body habitus, her age, her underlying [facility] [address] [place] [address] PAIN MANAGEMENT CONSULTATION Name: JOSESITO JULIO Room #: REG ELANA Brown#: [id number] Admission: 01/10/20 Attend Phys: Shahab Almeida DO Discharge: Date of : 47 Report #: [id number] condition of hypertension, though this would not preclude the patient from undergoing an injection, we would recommend that if she does choose to do so that she limit any contact with family members over the next 2 weeks as steroid exposures have been shown to increase the potential of andrés and having worsening symptoms of COVID. If the patient does wish to undergo an epidural injection, she may do so, assuming her function continues to deteriorate. 3. The patient was provided a prescription of gabapentin 300 mg tablet, she takes 3 in the morning, 3 at noon and 5 at night. I have given the patient the appropriate number of tablets 330 to be able to keep this level going. I have given the patient this prescription with 5 refills. 4. The patient was provided refill prescription of hydrocodone/acetaminophen 7.5/325 one tab p.o. q.6 hours p.r.n. for pain. I have given the patient #120, releasing today, 4 weeks from today, 8 weeks from today, 3 months' worth of medication. The patient has been stabilized on this medication dose. She is not having any side effects with its use. We have provided her 3-month prescriptions in the past and we will continue the therapy, assuming no complications. 5. We will see the patient back in followup visit for possible epidural injection in the very near future, assuming she understands her risks and does wish to consider this as a treatment option. Otherwise, we will see the patient back in followup visit in 3 months. By: [id number] Shahab Almeida DO /nt
[2020-01-10 13:33] VITALS: BP 132/81
--- NOTE | 2020-01-10 13:44 | NUR ---
Pain Clinic Assessment: 1. History of Osteoarthritis: Left Lower Extremity Right Lower Extremity History of Rheumatoid Arthritis: DENIES 2. Height: 5 ft. 8 in. 172.7 cm. Weight: 306.8 lb. oz. 139.164 kg. Patient's BMI: 46.7 3. Vital Signs: BP: 132/81 Pulse: 86 Resp: 20 Temp: 02 Sat: 96 ECG Mon: 4. Pain Intensity: 7 5. Fall Risk: Dizziness: N Needs help standing or walking: Y Fallen in the last 3 months: N Fall risk comments: 6. Patient on Blood Thinner: None 7. History of Hypertension: Y 8. Opioid Therapy greater than 6 weeks: Y Opiate Contract Signed: 04/14/16 9. Risk Assessment Tool Provided: 1- LOW 10. Functional Assessment Tool: 11. Recreational Drug Use: Never Drug Type: Tobacco Use: Never Smoker Tobacco Type: Amount or Packs/day: How Many Years: Alcohol Use: No Frequency: Quant:
== END ==
LOC: PAIN 09:15
DX: M47.27 Other spondylosis with radiculopathy, lumbosacral region (principal); M51.16 Intervertebral disc disorders with radiculopathy, lumbar region; M48.061 Spinal stenosis, lumbar region without neurogenic claudication; R20.2 Paresthesia of skin; M79.604 Pain in right leg; M79.605 Pain in left leg

== ENCOUNTER → 2020-04-17 | Outpatient (CLI) | payer OTHER, MEDICARE ==
[~2020-04-17] VITALS: Ht 172.7 cm; Wt 134.0 kg
[~2020-04-17] MED LIST changes: +OZEMPIC1 MG/0.75 INJECTION
[2020-04-17 08:51] VITALS: BP 122/98
--- NOTE | 2020-04-17 08:58 | NUR ---
Pain Clinic Assessment: 1. History of Osteoarthritis: Left Lower Extremity Right Lower Extremity History of Rheumatoid Arthritis: Not Applicable 2. Height: 5 ft. 8 in. 172.7 cm. Weight: 295.4 lb. oz. 133.993 kg. Patient's BMI: 44.9 3. Vital Signs: BP: 122/98 Pulse: 81 Resp: 20 Temp: 02 Sat: 96 ECG Mon: 4. Pain Intensity: 6 5. Fall Risk: Dizziness: N Needs help standing or walking: Y Fallen in the last 3 months: N Fall risk comments: 6. Patient on Blood Thinner: None 7. History of Hypertension: Y 8. Opioid Therapy greater than 6 weeks: Y Opiate Contract Signed: 04/14/16 9. Risk Assessment Tool Provided: 1- LOW 10. Functional Assessment Tool: 11. Recreational Drug Use: Never Drug Type: Tobacco Use: Never Smoker Tobacco Type: Amount or Packs/day: How Many Years: Alcohol Use: No Frequency: Quant:
--- NOTE | 2020-04-17 14:35 | HPC ---
[facility] [address] [place] [address] PAIN MANAGEMENT CONSULTATION Name: JOSESITO JULIO Room #: REG [facility].#: [id number] Admission: 04/17/20 Attend Phys: Viv Mathews Discharge: Date of : 47 Report #: [id number] THIS REPORT FOR: cc: Vishnu Taylor MD, Bernard O. MD Hocker,Viv WOODRUFF ~ CC: Shahab Almeida DO DATE OF SERVICE: 04/17/2020 CHIEF COMPLAINT: Low back pain, bilateral lower extremity pain and paresthesias, right shoulder pain. HISTORY OF PRESENT ILLNESS: As you know, this is a very pleasant 75-year-old female who returns to the pain clinic today requesting refills of her medications. Today, she is also complaining of right shoulder pain. She believes her pain medicine has been helping control her multiple pain generators of her low back, knees, hips, arms, hands and shoulders; is an aching, throbbing pain. Today, she does report a pain score of 6/10. It is worse with walking, standing and weather changes. She believes she has been more active lately, which has increased especially her right shoulder pain and low back pain. She feels that her medication as well as sitting down have been beneficial. The patient reports she has recently started Ozempic through her food beverage manager. Since starting this medication, she has noticed more energy. She has lost 10 pounds since our last visit with her in December. Because she is feeling better, she is being more active; therefore, she believes her right shoulder pain has increased. ALLERGIES: SULFA. CURRENT LIST OF MEDICATIONS: Ozempic 0.5 mg weekly, hydrocodone 7.5/325 p.r.n., gabapentin, Synthroid, Crestor, Coreg, vitamin D, hydrochlorothiazide, Cymbalta, clonazepam and Zetia. PATIENT'S PQRS: 1. She has known arthritic changes in her lumbar spine, bilateral knees, hips, thumbs and right shoulder. Denies rheumatoid arthritis. 2. Height is 5 feet 8 inches, weight is 295, BMI is 44. 3. Vital signs 122/98, pulse is 81, respirations 20, oxygen sat is 96. 4. Pain score is 6/10. 5. Denies dizziness. Does need help walking, uses a walker at all times. Has not fallen in the last 3 months. 6. The patient is not on any blood thinners, but does take medicine for hypertension. 7. Opioid therapy is greater than 6 weeks; therefore, [place] [address] PAIN MANAGEMENT CONSULTATION Name: JOSESITO JULIO Iris Room #: REG Pio Brown#: [id number] Admission: 04/17/20 Attend Phys: Viv Mathews Discharge: Date of : 47 Report #: [id number] is on the chart. Risk assessment tool is low. Functional assessment is 38/70. 8. Recreational drug use, she denies. She is not a smoker and does not drink alcohol. According to the prescription monitoring system, the patient is filling appropriately for her medications, filling them in a timely fashion and is due to fill today. Her morphine milliequivalent according to the CDC guidelines is 30 MMEs. PHYSICAL EXAMINATION: GENERAL: This is an alert and orientated, well-developed, well-nourished, class 3 morbidly obese 75-year-old female, rating her pain score at 6/10 today. HEENT: Normocephalic, atraumatic. Pupils equal, round and reactive to light. She is wearing a mask. Her speech is fluent. EXTREMITIES: No clubbing, no cyanosis, no edema. MUSCULOSKELETAL: She has pain in her right shoulder that does increase with all range of motion activities. Her lower extremity strength is symmetrical, but deconditioned. She utilizes a rolling walker for ambulation. Gait is antalgic. She has a slightly lordotic curve in her spine. Straight leg raising remains positive bilaterally. Pain in the lumbosacral region does radiate into her hips. ASSESSMENT: 1. Symptomatic lumbar radiculopathy. 2. Severe progressing worsening spinal stenosis of the lumbar spine. 3. Displacement of lumbar intervertebral disk with radiculopathy. 4. Lumbosacral spondylosis with radiculopathy. 5. Right shoulder pain, possible osteoarthritis. 6. Chronic intractable pain. We reviewed the fact that opiate medications are being used to provide analgesia adequate to support activities of daily living, not attempting to achieve a specific pain score on the 0-10 Visual Analog Scale. The current opiate medications are providing sufficient analgesia to allow the patient to participate in activities of daily living. The patient is not exhibiting any aberrant behavior suggestive of drug diversion. The patient is not having any adverse reactions to medications. The patient is not suffering from daytime somnolence or mental acuity changes. The patient is managing opiate-induced constipation with appropriate vdtl-eka-hefhjll agents and dietary considerations. The patient was counseled on concern for caution with operating a motor vehicle while using opiate medications. PLAN: 1. We discussed treatment options with the patient today. The patient is encouraged by her weight loss since starting Ozempic. I encouraged her to continue. She has lost 10 pounds since our last visit. The [address] [address] PAIN MANAGEMENT CONSULTATION Name: JOSESITO JULIO Room #: REG [facility]#: [id number] Admission: 04/17/20 Attend Phys: Viv Mathews Discharge: Date of : 47 Report #: [id number] patient states she does have to pay out of pocket for this expensive medication, but feels like it is worth it since she is being more active and feels like she has more energy and is not as hungry. 2. We did discuss the possibility of injections in the future. The patient has had numerous lumbar epidural steroid injections from Dr. Shahab Almeida, but we did discuss a possible right shoulder injection or knee Synvisc injections for her osteoarthritis. The patient will consider these in the future. 3. We did discuss the patient trialing diclofenac gel. She can obtain this [id number] to see if that is beneficial in decreasing some of her right shoulder pain. 4. The patient denies any daytime sleepiness or constipation as a result of her opioids. We will have Dr. Shahab Almeida send her hydrocodone 7.5/325, #120, for 3 months to her local pharmacy. The patient is seen today in collaboration with Dr. Shahab Almeida. <ELECTRONICALLY SIGNED> By: Viv Mathews 04/17/20 1435 [id number] Viv Mathews /nt
== END ==
LOC: PAIN 06:58
PROVIDERS: ATTEND Clinical Nurse Specialist Adult Health
DX: M51.16 Intervertebral disc disorders with radiculopathy, lumbar region (principal); M47.27 Other spondylosis with radiculopathy, lumbosacral region; M79.604 Pain in right leg; M79.605 Pain in left leg; R20.2 Paresthesia of skin; M25.511 Pain in right shoulder; M48.061 Spinal stenosis, lumbar region without neurogenic claudication; G89.29 Other chronic pain; F11.20 Opioid dependence, uncomplicated; Z88.2 Allergy status to sulfonamides; Z79.899 Other long term (current) drug therapy

== ENCOUNTER → 2020-06-06 | Outpatient (CLI) | payer OTHER, MEDICARE | LOC: RAD 08:24 | PROVIDERS: ATTEND Internal Medicine | DX: Z12.31 Encounter for screening mammogram for malignant neoplasm of breast (principal) ==

== ENCOUNTER → 2020-07-16 | Outpatient (CLI) | payer OTHER, MEDICARE ==
[~2020-07-16] VITALS: Ht 172.7 cm; Wt 128.6 kg
[2020-07-16 10:41] VITALS: BP 140/78
--- NOTE | 2020-07-16 10:44 | NUR ---
Pain Clinic Assessment: 1. History of Osteoarthritis: Left Lower Extremity Right Lower Extremity History of Rheumatoid Arthritis: Not Applicable 2. Height: 5 ft. 8 in. 172.7 cm. Weight: 283.4 lb. oz. 128.550 kg. Patient's BMI: 43.1 3. Vital Signs: BP: 140/78 Pulse: 81 Resp: 18 Temp: 02 Sat: 92 ECG Mon: 4. Pain Intensity: 3-4 5. Fall Risk: Dizziness: N Needs help standing or walking: N Fallen in the last 3 months: N Fall risk comments: 6. Patient on Blood Thinner: None 7. History of Hypertension: Y 8. Opioid Therapy greater than 6 weeks: Y Opiate Contract Signed: 04/14/16 9. Risk Assessment Tool Provided: 1- LOW 10. Functional Assessment Tool: 11. Recreational Drug Use: Never Drug Type: Tobacco Use: Never Smoker Tobacco Type: Amount or Packs/day: How Many Years: Alcohol Use: No Frequency: Quant:
--- NOTE | 2020-07-17 14:34 | HPC ---
[facility] [address] [place] [address] PAIN MANAGEMENT CONSULTATION Name: JOSESITO JULIO [id number] Admission: 07/16/20 Attend Phys: Viv Mathews Discharge: Date of : 47 Report #: [id number] CC: Viv Almeida DO DATE OF SERVICE: 07/16/2020 CHIEF COMPLAINT: Chronic low back pain, bilateral lower extremity pain and paresthesias. HISTORY OF PRESENT ILLNESS: This is a very pleasant 75-year-old female who returns to the pain clinic today stating that her pain is doing quite well, rating at a 3-4. She feels that her medications are beneficial in helping with her low back, bilateral knee and hip pain. It is an aching, throbbing pain, worse with weather changes or prolonged standing and walking. She also believes that she has been losing weight and finds this has been beneficial in decreasing some of her low back pain and knee pain as well. At her visit today, she is down 13 pounds since her visit 3 months ago. The patient states that she continues to watch her diet and is trying to decide if she is going to have her gastric sleeve bypass or continue to try and lose weight on her own. She would like to lose about 100 pounds more per her report. Today, she is here requesting refills of her medications. ALLERGIES: SULFA. CURRENT LIST OF MEDICINES: Hydrocodone 7.5/325 p.r.n. Ozempic, gabapentin 900 mg at noon and 1500 at night, Synthroid, Crestor, Coreg, vitamin D, hydrochlorothiazide, Cymbalta, clonazepam and Zetia. PQRS: 1. She has a history of osteoarthritic changes in her lower extremities. Denies any rheumatoid arthritis. 2. Height is 5 feet 8 inches, weight is 283, BMI is 43. 3. Vital signs; blood pressure 140/78, pulse is 81, respirations 18, oxygen sat is 92. 4. Pain score is 3 to 4. 5. Denies dizziness. Does use a walker at all times and has not fallen in the last 3 months. 6. The patient is not on any blood thinners, but does take medicine for hypertension. 7. Her opioid therapy is greater than 6 weeks; therefore, an opioid signed contract is on the chart. Risk assessment is low. Functional assessment is 38/70. 8. Recreational drug use, she denies. She is not a smoker and does not drink alcohol. According to the prescription monitoring system, the patient is filling appropriately for her medications, filling them in a timely fashion. Her morphine milliequivalent according to the CDC guidelines is 30. There is a recent drug screen on the chart that is appropriate for her. PHYSICAL EXAMINATION: GENERAL: This is alert and orientated, well-nourished, well-developed, class 3, morbidly obese 75-year-old female who appears her stated age, placing her current pain score at 3-4. HEENT: Normocephalic, atraumatic. Extraocular eye muscles are intact. She is wearing a mask. EXTREMITIES: No clubbing, no cyanosis, no edema. MUSCULOSKELETAL: Her gait is antalgic. She uses a rolling walker for ambulation and is able to rise from the seated position using the armrest. Her lower extremity strength is symmetrical, but deconditioned bilaterally. She has a slightly lordotic curve in her spine with Seated straight leg raising is positive bilaterally. ASSESSMENT: 1. Symptomatic lumbar radiculopathy. 2. Severe progressing worsening spinal stenosis of the lumbar spine. 3. Displacement of lumbar intervertebral disk with radiculopathy. 4. Morbid obesity. 5. Lumbosacral spondylosis with radiculopathy. 6. Chronic intractable pain. We reviewed the fact that opiate medications are being used to provide analgesia adequate to support activities of daily living, not attempting to achieve a specific pain score on the 0-10 Visual Analog Scale. The current opiate medications are providing sufficient analgesia to allow the patient to participate in activities of daily living. The patient is not exhibiting any aberrant behavior suggestive of drug diversion. The patient is not having any adverse reactions to medications. The patient is not suffering from daytime somnolence or mental acuity changes. The patient is managing opiate-induced constipation with appropriate xofm-ijl-eoaapww agents and dietary considerations. The patient was counseled on concern for caution with operating a motor vehicle while using opiate medications. PLAN: 1. We discussed treatment options with the patient today. I congratulated her on her continued weight loss. She has lost another 13 pounds since our last visit. She continues to take Ozempic as well as watch her diet. She is considering postponing her gastric sleeve bypass surgery that she is scheduled for the end of July and see if she can continue to lose weight on her own. I encouraged the patient to be as active as she is able to continue to walk more towards her goal of 100-pound weight loss. 2. We did discuss ongoing medications that she finds very beneficial. She has not needed a lumbar epidural steroid injection in greater than a year. The patient feels that currently she is doing quite well on her regimen and is not going to schedule an epidural since she is feeling that her pain is slowly decreasing with her ongoing weight loss. We did talk about core strengthening as well as encouraging walking. 3. We will have Dr. Shahab Almeida send her hydrocodone 7.5/325, #120 for 3 months. She is not in need of gabapentin at this time. We will see the patient back in 3 months. The patient is seen today in collaboration with Dr. Shahab Almeida. <ELECTRONICALLY SIGNED> By: Viv Mathews 07/17/20 1434 [id number] 1442 Viv Mathews /dimitri
== END ==
LOC: PAIN 06:53
PROVIDERS: ATTEND Clinical Nurse Specialist Adult Health
DX: M51.16 Intervertebral disc disorders with radiculopathy, lumbar region (principal); M48.061 Spinal stenosis, lumbar region without neurogenic claudication; G89.29 Other chronic pain; M79.604 Pain in right leg; M79.605 Pain in left leg; R20.2 Paresthesia of skin; E66.9 Obesity, unspecified; M47.27 Other spondylosis with radiculopathy, lumbosacral region; Z88.8 Allergy status to other drugs, medicaments and biological substances; Z79.899 Other long term (current) drug therapy

== ENCOUNTER → 2020-10-09 | Outpatient (CLI) | payer OTHER, MEDICARE ==
[~2020-10-09] VITALS: Ht 172.7 cm; Wt 124.5 kg
[~2020-10-09] MED LIST changes: +LEVO-T25 MCG; +LEVO-T25 MCG PO
[2020-10-09 10:16] VITALS: BP 121/55
--- NOTE | 2020-10-09 10:29 | NUR ---
Pain Clinic Assessment: 1. History of Osteoarthritis: Left Lower Extremity Right Lower Extremity History of Rheumatoid Arthritis: Not Applicable 2. Height: 5 ft. 8 in. 172.7 cm. Weight: 274.4 lb. oz. 124.467 kg. Patient's BMI: 41.7 3. Vital Signs: BP: 121/55 Pulse: 71 Resp: 18 Temp: 02 Sat: 97 ECG Mon: 4. Pain Intensity: 3 5. Fall Risk: Dizziness: N Needs help standing or walking: Y Fallen in the last 3 months: N Fall risk comments: 6. Patient on Blood Thinner: None 7. History of Hypertension: Y 8. Opioid Therapy greater than 6 weeks: Y Opiate Contract Signed: 04/14/16 9. Risk Assessment Tool Provided: 1- LOW 10. Functional Assessment Tool: 11. Recreational Drug Use: Never Drug Type: Tobacco Use: Never Smoker Tobacco Type: Amount or Packs/day: How Many Years: Alcohol Use: No Frequency: Quant:
--- NOTE | 2020-10-11 07:26 | HPC ---
[facility] [place] [address] PAIN MANAGEMENT CONSULTATION Name: JOSESITO JULIO Room #: REG ELANA Kevin#: [id number] Admission: 10/09/20 Attend Phys: Viv Mathews Discharge: Date of : 46 Report #: [id number] THIS REPORT FOR: cc: Theron Garza Bradley J. DO Hocker,Viv WOODRUFF ~ DATE OF SERVICE: 10/09/2020 CHIEF COMPLAINT: Chronic low back pain, bilateral lower extremity pain and paresthesias. HISTORY OF PRESENT ILLNESS: As you know, this is a very pleasant 75-year-old female who returns today to discuss her opioid. The patient reports that she has decided to have her gastric sleeve bypass surgery. It is scheduled for Wednesday with Dr. Bates at [facility]. She is here to discuss pain management pre and postoperatively as well as refills today. The patient continues to have ongoing low back pain that radiates into her knees and hips and occasionally right shoulder pain. Her pain is described as an aching, sharp, throbbing sensation that is worse with prolonged walking and weather changes. She does use a walker and feels that it is beneficial to help reduce some of her discomfort in her back by leaning on the walker. She is able also to sit if her back becomes too problematic. Sitting as well as lying down and utilizing her opioid medications have been beneficial. She denies any daytime somnolence or constipation issues that are not managed by hkou-azy-ntapxgk medications. ALLERGIES: SULFA. CURRENT LIST OF MEDICATIONS: Hydrocodone 7.5/325 t.i.d. to q.i.d., Ozempic, gabapentin, Synthroid, Crestor, Coreg, vitamin D, hydrochlorothiazide, duloxetine, Zetia and clonazepam. PQRS: 1. She has osteoarthritis affecting her spine as well as her lower extremities. Denies any rheumatoid arthritis. 2. Height is 5 feet 8 inches, weight is 274, BMI is 41. This is down from 283 at her previous visit. 3. Vital Signs: 121/55, pulse is 71, respirations 18, oxygen sat is 97%. 4. Pain score 3/10. 5. Denies dizziness, does utilize a walker for ambulation, has not fallen in the last 3 months. 6. The patient is not on any blood thinners, but does take medicine for hypertension. 7. Opioid therapy is greater than 6 weeks; therefore, an opioid signed contract is on the chart. Risk assessment is low. Functional assessment is 38/70. 8. Recreational drug use, she denies. She is not a [place] [address] PAIN MANAGEMENT CONSULTATION Name: JOSESITO JULIO Iris Room #: REG ELANA Brown#: [id number] Admission: 10/09/20 Attend Phys: Viv Mathews Discharge: Date of : 46 Report #: [id number] alcohol. According to the prescription monitoring system, the patient is filling our medications appropriately. There is a prescription from her surgeon for postop pain management for 3 days postoperatively that she has filled in preparation. Her morphine mEq according to the CDC guidelines is 30 MMEs per day. There is a drug screen on the chart that is appropriate. We will recheck this at her next visit. PHYSICAL EXAMINATION: GENERAL: This is alert and orientated, morbidly obese 75-year-old female who appears her stated age, placing her current pain score at 3/10 today. HEENT: Normocephalic, atraumatic. Extraocular eye muscles are intact. She is wearing a mask and glasses. EXTREMITIES: No clubbing, no cyanosis, no edema. MUSCULOSKELETAL: She has an antalgic gait using a walker at all times and uses armrest to raise from the seated position. She has tenderness in her lumbosacral spine that radiates into her legs. She has a slightly lordotic curve with no scoliosis present. ASSESSMENT: 1. Symptomatic lumbar radiculopathy. 2. Severe progressing worsening spinal stenosis of lumbar spine. 3. Displacement of the lumbar intervertebral disk with radiculopathy. 4. Morbid obesity, scheduled for gastric sleeve bypass. 5. Lumbosacral spondylosis with radiculopathy. 6. Chronic intractable pain. Utilizing scheduled opioid medications. We reviewed the fact that opiate medications are being used to provide analgesia adequate to support activities of daily living, not attempting to achieve a specific pain score on the 0-10 Visual Analog Scale. The current opiate medications are providing sufficient analgesia to allow the patient to participate in activities of daily living. The patient is not exhibiting any aberrant behavior suggestive of drug diversion. The patient is not having any adverse reactions to medications. The patient is not suffering from daytime somnolence or mental acuity changes. The patient is managing opiate-induced constipation with appropriate qwkz-whm-taiwssz agents and dietary considerations. The patient was counseled on concern for caution with operating a motor vehicle while using opiate medications. PLAN: 1. We discussed treatment options with the patient today. The patient has been trying to taper her opioid medications, currently taking an average of 3 hydrocodone a day. She has been able to do this and continue her weight loss program and has been walking utilizing a rolling walker. We discussed trying to taper her medicines slightly prior to her surgery on Wednesday to have better pain [facility] [address] [place] [address] PAIN MANAGEMENT CONSULTATION Name: JOSESITO JULIO Room #: REG ELANA Brown#: [id number] Admission: 10/09/20 Attend Phys: Viv Mathews Discharge: Date of : 46 Report #: [id number] control postoperatively. The patient will stay in the hospital 2-3 days and then utilize hydrocodone 10/325 that has been given by Dr. Bates. After that she will return to her hydrocodone 7.5/325. I did explain that the patient will be able to take up to 5 tablets a day of her medications for the first few days postoperatively then slowly decrease back to her 3 tablets a day with a goal to hopefully decrease her medication when her next visit. The patient is agreeable with this plan of care. 2. Scripts will be sent electronically for hydrocodone 7.5, #120 for 3 months. This may, however, last the patient greater than 3 months depending on her usage and tapering of her dose. 3. We will resend her gabapentin 300 mg, the patient takes 900 in the morning and 900 midday and 1500 at bedtime, quantity 330 sent for additional 6 months. 4. The patient will follow up in 3-4 months and seen in collaboration with Dr. Shahab Almeida today. <ELECTRONICALLY SIGNED> By: Viv Mathews 10/11/20 0726 [id number] [id number] Viv feng
== END ==
LOC: PAIN 06:51
PROVIDERS: ATTEND Clinical Nurse Specialist Adult Health
DX: M51.16 Intervertebral disc disorders with radiculopathy, lumbar region (principal); R20.2 Paresthesia of skin; M48.061 Spinal stenosis, lumbar region without neurogenic claudication; E66.01 Morbid (severe) obesity due to excess calories; M47.27 Other spondylosis with radiculopathy, lumbosacral region; F11.20 Opioid dependence, uncomplicated; Z88.8 Allergy status to other drugs, medicaments and biological substances; Z79.899 Other long term (current) drug therapy

== ENCOUNTER → 2021-01-08 | Outpatient (CLI) | payer OTHER, MEDICARE ==
[~2021-01-08] VITALS: Ht 172.7 cm; Wt 108.3 kg
[2021-01-08 10:22] VITALS: BP 101/61
--- NOTE | 2021-01-08 10:38 | NUR ---
Pain Clinic Assessment: 1. History of Osteoarthritis: Left Lower Extremity Right Lower Extremity History of Rheumatoid Arthritis: Not Applicable 2. Height: 5 ft. 8 in. 172.7 cm. Weight: 238.8 lb. oz. 108.319 kg. Patient's BMI: 36.3 3. Vital Signs: BP: 101/61 Pulse: 76 Resp: 20 Temp: 02 Sat: 99 ECG Mon: 4. Pain Intensity: 4 5. Fall Risk: Dizziness: N Needs help standing or walking: Y Fallen in the last 3 months: N Fall risk comments: 6. Patient on Blood Thinner: None 7. History of Hypertension: Y 8. Opioid Therapy greater than 6 weeks: Y Opiate Contract Signed: 04/14/16 9. Risk Assessment Tool Provided: LOW-0 10. Functional Assessment Tool: 11. Recreational Drug Use: Never Drug Type: Tobacco Use: Never Smoker Tobacco Type: Amount or Packs/day: How Many Years: Alcohol Use: No Frequency: Quant:
--- NOTE | 2021-01-09 08:53 | HPC ---
[facility] [address] [place] [address] PAIN MANAGEMENT CONSULTATION Name: JOSESITO JULIO Room #: REG [facility] Kevin#: [id number] Admission: 01/08/21 Attend Phys: Viv Mathews Discharge: Date of : 46 Report #: [id number] THIS REPORT FOR: cc: Theron Garza Bradley J. DO Hocker,Viv WOODRUFF ~ DATE OF SERVICE: 01/08/2021 CHIEF COMPLAINT: Chronic low back pain, bilateral lower extremity pain and paresthesias. HISTORY OF PRESENT ILLNESS: This is a very pleasant 75-year-old female who returns to the pain clinic today for renewal of her opioid medications. Since we last saw the patient, she has undergone a gastric sleeve bypass surgery. She reports it went quite well with very minimal pain. Since that time, she has lost 36 pounds. The patient feels that losing the significant weight has not helped her low back pain and her knee pain, mostly due to the fact that she is more active. The patient is walking more using her walker at all times. She reports recently getting to attend her granddaughter's volleyball games at [employer] and was able to walk that significant distance. On that day, she did utilize 4 pain pills. The patient reports most days she is able to get by with 2-3 tablets of her hydrocodone. The patient reports her pain as an aching, sharp, stabbing pain, again worse with increased activity and weather changes. The patient does deny any problems with constipation or daytime somnolence as a result of her medication regimen. Today, she would like renewal of her hydrocodone. The patient does report she had both of her COVID vaccines and had no side effects as a result of the vaccinations. ALLERGIES: SULFA. CURRENT LIST OF MEDICATIONS: Hydrocodone 7.5/325 p.r.n., gabapentin, levothyroxine, Ozempic, Crestor, Coreg, vitamin D, hydrochlorothiazide, Cymbalta, clonazepam and Zetia. PQRS: 1. The patient has osteoarthritis affecting her spine as well as her lower extremities. Denies any rheumatoid arthritis. 2. Height is 5 feet 8 inches, weight is 238, BMI is 36. Began down 38 pounds from her last visit. 3. Vital signs 101/61, pulse is 76, respirations 20, oxygen sat is 99%. 4. Pain score is 4/10. 5. Denies dizziness, does utilize a walker for ambulation and has not fallen in the last 3 months. 6. The patient is not on any blood thinners, but does take medicine for [address] [address] PAIN MANAGEMENT CONSULTATION Name: JOSESITO JULIO Iris Room #: REG CL Kevin#: [id number] Admission: 01/08/21 Attend Phys: Viv Mathews Discharge: Date of : 46 Report #: [id number] hypertension. Her blood pressure is quite low today. Opioid therapy is greater than 6 weeks; therefore, an opioid signed contract is on the chart. Risk assessment is low. Functional assessment . 7. Recreational drug use, she denies. She is not a smoker and does not drink alcohol. According to the prescription monitoring system, she is filling appropriately. There was one fill post-surgery for a 3-day supply that we were made aware of. Her morphine mEq is 30 MME or lower per day. We will check a random drug screen on her today. PHYSICAL EXAMINATION: GENERAL: This is alert and orientated, morbidly obese 75-year-old female who appears her stated age, placing her current pain score at 4/10. HEENT: Normocephalic, atraumatic. Extraocular eye muscles are intact. She is wearing a mask and glasses. EXTREMITIES: No clubbing, no cyanosis, no edema. MUSCULOSKELETAL: She has an antalgic gait, uses a walker at all times with no falls. She does utilize armrest for standing. She has pain and tenderness in the lumbosacral region that radiates into her legs bilaterally, greater on the left than the right. Tenderness in her left knee today. She is without kyphosis or scoliosis. Does have a slightly lordotic curve. ASSESSMENT: 1. Symptomatic lumbar radiculopathy. 2. Severe progressing worsening spinal stenosis of lumbar spine. 3. Displacement of lumbar intervertebral disk with radiculopathy. 4. Morbid obesity with recent gastric sleeve bypass with significant weight loss. 5. Lumbosacral spondylosis with radiculopathy. 6. Chronic intractable pain utilizing complex scheduled opioid medications. We reviewed the fact that opiate medications are being used to provide analgesia adequate to support activities of daily living, not attempting to achieve a specific pain score on the 0-10 Visual Analog Scale. The current opiate medications are providing sufficient analgesia to allow the patient to participate in activities of daily living. The patient is not exhibiting any aberrant behavior suggestive of drug diversion. The patient is not having any adverse reactions to medications. The patient is not suffering from daytime somnolence or mental acuity changes. The patient is managing opiate-induced constipation with appropriate kdqf-kka-cfcjomt agents and dietary considerations. The patient was counseled on concern for caution with operating a motor vehicle while using opiate medications. A physical exam was performed and the patient's functional status was evaluated. [address] [place] [address] PAIN MANAGEMENT CONSULTATION Name: JOSESITO JULIO Room #: REG ELANA Kevin#: [id number] Admission: 01/08/21 Attend Phys: Viv Mathews Discharge: Date of : 46 Report #: [id number] All patients with back pain were advised against the bed rest greater than 4 days and were advised to return to normal activities. Pain score assessment was noted and the treatment plan was reviewed with the patient. All current medications, both prescribed and OTC were reviewed and reconciled on the electronic medical record. Tobacco screening was accomplished and smoking cessation was advised when indicated. BMI was noted and diet/exercise modification was recommended for all patients following outside normal parameters. I reviewed with the patient today their responsibilities to safeguard prescription medications, reviewed their responsibility to utilize medications only as prescribed by the physician. They are to seek and receive pain medications only from 1 physician group ( [facility]). They are to use 1 pharmacy and keep the clinic informed if they change pharmacies. Their responsibilities include making followup visits in a timely fashion and to avoid abrupt discontinuation of medication usage. Their responsibilities further include bringing their medications (bottles from the pharmacy with residual pills) to the visit for possible confirmation of pill counts and the patient understands it is their responsibility to submit to random drug screens to ensure both that the medications prescribed are present, and that no other controlled substances are present. All prescriptions provided today were generated electronically. PLAN: 1. We discussed treatment options with the patient today. The patient finds her medications very beneficial with very minimal side effects. She would like to continue on the hydrocodone 7.5. We will have Dr. Shahab Almeida send this electronically, #120 pills for a total of 3 months. 2. The patient continues on her gabapentin, but does not need prescription refills of that medication today. 3. We did encourage her to be as active as she is able. She has been walking more since she has lost weight that has increased some of her pain. She reports feeling quite well. The patient is hopeful to continue on her weight loss journey and maybe then her back pain was slightly decreased. Time spent with the patient in consultation, reviewing recent studies and clinical notes and physician reports, physical examination and correlation of physical finding and documentation of treatment, 15 minutes. Time spent in preparation for appointment reviewing prescription monitoring system review and previous records and proposed treatment options and reviewing current medications, 5 minutes. Time spent preparing and sending electronic prescriptions with collaborating physician, documentation of visit and plan of treatment and collecting of urine, 5 minutes. [facility] [address] [place] [address] PAIN MANAGEMENT CONSULTATION Name: JOSESITO JULIO Room #: REG CL Kevin#: [id number] Admission: 01/08/21 Attend Phys: Viv Mathews Discharge: Date of : 46 Report #: [id number] Total time spent 25 minutes. <ELECTRONICALLY SIGNED> By: Viv Mathews 01/09/21 0853 1114 [id number] Viv feng
== END ==
LOC: PAIN 08:49
PROVIDERS: ATTEND Clinical Nurse Specialist Adult Health
DX: M51.16 Intervertebral disc disorders with radiculopathy, lumbar region (principal); G89.29 Other chronic pain; M79.605 Pain in left leg; M79.604 Pain in right leg; R20.2 Paresthesia of skin; M48.061 Spinal stenosis, lumbar region without neurogenic claudication; E66.01 Morbid (severe) obesity due to excess calories; M47.27 Other spondylosis with radiculopathy, lumbosacral region; F11.20 Opioid dependence, uncomplicated; Z79.899 Other long term (current) drug therapy

== ENCOUNTER → 2021-04-08 | Outpatient (CLI) | payer OTHER, MEDICARE ==
[~2021-04-08] VITALS: Ht 172.7 cm; Wt 97.1 kg
[2021-04-08 09:47] VITALS: BP 101/47
--- NOTE | 2021-04-08 09:49 | NUR ---
Pain Clinic Assessment: 1. History of Osteoarthritis: Left Lower Extremity Right Lower Extremity History of Rheumatoid Arthritis: Not Applicable 2. Height: 5 ft. 8 in. 172.7 cm. Weight: 214.0 lb. oz. 97.070 kg. Patient's BMI: 32.5 3. Vital Signs: BP: 101/47 Pulse: 701 Resp: Temp: 02 Sat: ECG Mon: 4. Pain Intensity: 4 5. Fall Risk: Dizziness: N Needs help standing or walking: N Fallen in the last 3 months: N Fall risk comments: 6. Patient on Blood Thinner: None 7. History of Hypertension: Y 8. Opioid Therapy greater than 6 weeks: Y Opiate Contract Signed: 04/14/16 9. Risk Assessment Tool Provided: LOW-0 10. Functional Assessment Tool: 11. Recreational Drug Use: Never Drug Type: Tobacco Use: Never Smoker Tobacco Type: Amount or Packs/day: How Many Years: Alcohol Use: No Frequency: Quant:
--- NOTE | 2021-04-09 07:52 | HPC ---
[facility] [address] [address] PAIN MANAGEMENT CONSULTATION Name: JOSESITO JULIO Room #: REG [facility].#: [id number] Admission: 04/08/21 Attend Phys: Viv Mathews Discharge: Date of : 46 Report #: [id number] THIS REPORT FOR: cc: Theron Garza Bradley J. DO Hocker, Amanda CNS ~ cc: Theron Garza DO, James E. Johnson, DO DATE OF SERVICE: 04/08/2021 CHIEF COMPLAINT: Chronic low back pain, bilateral lower extremity pain and paresthesias. HISTORY OF PRESENT ILLNESS: This is a very pleasant 75-year-old female who returns to the pain clinic today for renewal of her medications. Today, the patient is describing her pain as a sharp, aching, stabbing sensation that she is rating as a 4/10. It is most problematic in her low back and her left knee. She states her pain is worse with walking and prolonged standing and weather changes. Medication as well as sitting and lying down have been beneficial for her. She has found that she is using her walker less at home and utilizing a cane or going without where she is confined to her house. When she is out and about, she does use her walker at all times. The patient underwent a gastric sleeve bypass in September and since that time she has lost considerable more weight. Currently, today she is at 214, which is 100 pounds less than her peak weight of 315. Since our last visit with her, she has lost 19 pounds 2 months ago. She reports that since having this procedure, she has more energy and she is feeling significantly better. Unfortunately, since she has had this procedure, she has noticed that she has an umbilical hernia that is going to need to be repaired and would like to discuss that some today. ALLERGIES: SULFA. CURRENT LIST OF MEDICATIONS: Hydrocodone 7.5/325 p.r.n., Synthroid, gabapentin, Ozempic, Crestor, Coreg, vitamin D, hydrochlorothiazide, Cymbalta, clonazepam, Zetia. PQRS: 1. She has a history of osteoarthritis in her lower extremities as well as his spine. Denies any rheumatoid arthritis. Height is 5 feet 8 inches, weight is 214, BMI is 32. 2. Vital signs, blood pressure 101/47, pulse is 70, respirations 14, oxygen sat is 100. 3. Pain score is 4/10. 4. Denies dizziness, does not need help. She does use a walker or cane for ambulation and has not fallen in the last [address] [address] PAIN MANAGEMENT CONSULTATION Name: NORIJOSESITO Iris Room #: REG CL Kevin#: [id number] Admission: 04/08/21 Attend Phys: Viv Mathews Discharge: Date of : 46 Report #: [id number] 5. The patient is not on any blood thinners, but does take medicine for hypertension. 6. Opioid therapy is greater than 6 weeks; therefore, an opioid signed contract is on the chart. 7. Risk assessment is low. Functional assessment is 19/70. 8. Recreational drug use, she denies. She is not a smoker and does not drink alcohol. According to the prescription monitoring system, the patient is filling appropriately. She is due to fill her medications, filling them in a timely fashion. Her morphine milliequivalent according to the CDC guidelines is 30. PHYSICAL EXAMINATION: GENERAL: This is alert and orientated, obese 75-year-old female who is a good historian. Well-developed, well-nourished, placing her current pain score today at 4/10. HEENT: Normocephalic, atraumatic. Extraocular eye muscles are intact. She is wearing a mask and glasses. ABDOMEN: Upon examination, the patient was found to have an umbilical hernia. No tenderness noted. EXTREMITIES: No clubbing, no cyanosis, no edema. MUSCULOSKELETAL: She has tenderness in her lumbosacral region that radiates into her legs bilaterally, greater on the left than the right. Tenderness in her left knee with no edema noted. She has an antalgic gait, uses a walker today. ASSESSMENT: 1. Symptomatic lumbar radiculopathy. 2. Severe and progressively worsening spinal stenosis of lumbar spine. 3. Displacement of lumbar intervertebral disk with radiculopathy. 4. Morbid obesity with recent gastric sleeve bypass with weight loss of 100 pounds total. 5. Umbilical hernia. 6. Lumbosacral spondylosis with radiculopathy. 7. Left knee pain with osteoarthritis. 8. Chronic intractable pain, utilizing scheduled opioid medications. We reviewed the fact that opiate medications are being used to provide analgesia adequate to support activities of daily living, not attempting to achieve a specific pain score on the 0-10 Visual Analog Scale. The current opiate medications are providing sufficient analgesia to allow the patient to participate in activities of daily living. The patient is not exhibiting any aberrant behavior suggestive of drug diversion. The patient is not having any adverse reactions to medications. The patient is not suffering from daytime somnolence or mental acuity changes. The patient is managing opiate-induced constipation with appropriate nixz-udo-bjhsuxs agents and dietary [address] [address] PAIN MANAGEMENT CONSULTATION Name: JOSSEITO JULIO Room #: REG [facility]#: [id number] Admission: 04/08/21 Attend Phys: Viv Mathews Discharge: Date of : 46 Report #: [id number] considerations. The patient was counseled on concern for caution with operating a motor vehicle while using opiate medications. PLAN: We discussed treatment options with the patient today in regards to her umbilical hernia. I encouraged the patient to start the process of obtaining her CT of her abdomen and have a consultation with the surgeon that will be performing the surgery. She is hopeful to stay within the same group of doctors that performed her gastric sleeve bypass. She is wanting to lose another 20 pounds prior to having the surgery, but I did remind her that it takes time to have her tests and schedule her consultation before surgery. She will probably lose about 20 pounds in that time period. The patient states she will call her surgeon this week. 1. We will continue her on her gabapentin. The patient takes 3 tablets in the morning, 3 tablets midday, and 5 tablets at night and finds this beneficial in helping with her neuropathy and we will also continue her hydrocodone 7.5/325, #120 for 3 total months. The patient denies the constipation that she had in the past and she does take very minimal intake with her new diet. 2. We did discuss possible injections in her lumbar spine that she has had in the past or a possible knee injection by Dr. Shahab Almeida in the future, but really think she will have her osteoarthritic left knee injected first because it has been becoming more problematic and interferes with her activity more and more. 3. The patient will follow up in 3 months or as needed for an injection. Time spent with the patient in consultation, reviewing recent studies and clinical notes and physician reports, physical examination and correlation of physical findings and medical documentation, need to determine possible treatments, 17 minutes. Time spent in preparation for appointment, reviewing prescription monitoring system reports, previous records and proposed treatment options and reviewing current medications, 5 minutes. Time spent preparing and sending electronic prescriptions with Dr. Shahab Almeida and documentation of visit and plan of treatment, 5 minutes. Total time spent 27 minutes. <ELECTRONICALLY SIGNED> By: Viv Mathews 04/09/21 0752 [id number] [id number] Viv Mathews /nt
== END ==
LOC: PAIN 07:17
PROVIDERS: ATTEND Clinical Nurse Specialist Adult Health
DX: M51.16 Intervertebral disc disorders with radiculopathy, lumbar region (principal); M47.26 Other spondylosis with radiculopathy, lumbar region; E66.9 Obesity, unspecified; G89.4 Chronic pain syndrome; Z79.891 Long term (current) use of opiate analgesic; Z79.899 Other long term (current) drug therapy

== ENCOUNTER → 2021-07-08 | Outpatient (CLI) | payer OTHER, MEDICARE ==
[~2021-07-08] VITALS: Ht 172.7 cm; Wt 92.1 kg
[2021-07-08 10:33] VITALS: BP 108/62
--- NOTE | 2021-07-08 10:38 | NUR ---
Pain Clinic Assessment: 1. History of Osteoarthritis: Left Lower Extremity Right Lower Extremity History of Rheumatoid Arthritis: Not Applicable 2. Height: 5 ft. 8 in. 172.7 cm. Weight: 203.0 lb. oz. 92.080 kg. Patient's BMI: 30.9 3. Vital Signs: BP: 108/62 Pulse: 78 Resp: 16 Temp: 02 Sat: 97 ECG Mon: 4. Pain Intensity: 4 5. Fall Risk: Dizziness: N Needs help standing or walking: N Fallen in the last 3 months: N Fall risk comments: 6. Patient on Blood Thinner: None 7. History of Hypertension: Y 8. Opioid Therapy greater than 6 weeks: Y Opiate Contract Signed: 04/14/16 9. Risk Assessment Tool Provided: LOW-0 10. Functional Assessment Tool: 11. Recreational Drug Use: Never Drug Type: Tobacco Use: Never Smoker Tobacco Type: Amount or Packs/day: How Many Years: Alcohol Use: No Frequency: Quant:
--- NOTE | 2021-07-09 08:10 | HPC ---
[facility] [address] [address] PAIN MANAGEMENT CONSULTATION Name: JOSESITO JULIO Room #: REG [facility]#: [id number] Admission: 07/08/21 Attend Phys: Viv Mathews Discharge: Date of : 47 Report #: [id number] THIS REPORT FOR: cc: MARIANNE ANDERSEN Physician not on staff Viv Mathews ~ cc: Theron Garza DO, Shahab Almeida DO DATE OF SERVICE: 07/08/2021 CHIEF COMPLAINT: Chronic low back pain, bilateral lower extremity pain and paresthesias. HISTORY OF PRESENT ILLNESS: This is a very pleasant 76-year-old female who returns to the pain clinic today for renewal of her medications. She continues to complain of ongoing low back pain due to her worsening central canal stenosis. She does have bilateral lower extremity pain as well. Today, she is rating her pain score 4/10, describes her pain as an aching, sharp pain. Occasionally, she reports a stabbing sensation in her low back when she has been bending over and then goes to stand. She is considering having another lumbar epidural steroid injection in the next few weeks. She feels those are beneficial in controlling her pain and has not had one since September 2019. The patient is more active than she had been in the past due to significant weight loss from her gastric sleeve bypass. A total of 138 pounds have been lost so far. Her goal is to lose an additional 15 pounds. The patient reports she is not scheduling her lumbar epidural steroid injection because she has recently had a hernia repair and her flu shot, she is waiting a couple more weeks. She feels that they have been beneficial in the past, but was not able to have them last year due to her gastric sleeve bypass. She does utilize a cane at most times now for ambulation, but occasionally uses a walker when she is walking long distances. She believes the hydrocodone does not cause any severe constipation issues and would like to continue on this. ALLERGIES: SULFA. CURRENT LIST OF MEDICATIONS: Hydrocodone 7.5/325 p.r.n., gabapentin, levothyroxine, Ozempic, Crestor, Coreg, vitamin D, hydrochlorothiazide, Cymbalta, clonazepam, Zetia. PQRS: 1. She has osteoarthritic changes in her lower extremities and her back. Denies any rheumatoid arthritis. Height is 5 feet 8 inches, weight is 203. BMI is 30. 2. Vital signs: 108/62, pulse is 78, respirations 16, oxygen sat is 97%. 3. Pain score is 4/10. 4. Denies dizziness, does not need help walking or standing, [place] [address] PAIN MANAGEMENT CONSULTATION Name: JOSESITO JULIO Iris Room #: REG [facility]#: [id number] Admission: 07/08/21 Attend Phys: Viv Mathews Discharge: Date of : 47 Report #: [id number] the last 3 months. The patient is not on any blood thinners, but does take medicine for hypertension. Her opioid therapy is greater than 6 weeks; therefore, an opioid signed contract is on the chart. 5. Risk assessment is low. Functional assessment is . 6. Recreational drug use, she denies. She is not a smoker and does not drink alcohol. According to the prescription monitoring system, she is filling appropriately in a timely fashion. She is due to fill these medications. Her morphine mEq is 30 MMEs per day. There is a recent drug screen on the chart that is appropriate for her medications as well. PHYSICAL EXAMINATION: GENERAL: This is alert and orientated, well-developed, well-nourished, well-hydrated, morbidly obese 76-year-old who appears her stated age. Continues on significant weight loss. Pain today is a 4/10. HEENT: Normocephalic, atraumatic. Extraocular eye muscles are intact. She is wearing a mask for COVID precautions. EXTREMITIES: No clubbing, no cyanosis, no edema. MUSCULOSKELETAL: Lower extremity strength appears symmetrical. She is utilizing a cane for ambulation. Gait is antalgic. Stance is slightly forward flexed due to loss of lordotic curve. Seated straight leg raising is negative. Tenderness in the lumbar sacral region that radiates into her legs bilaterally. ASSESSMENT: 1. Symptomatic lumbar radiculopathy. 2. Severe progressing spinal stenosis of lumbar spine. 3. Displacement of the lumbar intervertebral disk with radiculopathy. 4. Morbid obesity with recent gastric sleeve bypass, lost 238 pounds. 5. Lumbosacral spondylosis with radiculopathy. 6. Chronic intractable pain, utilizing scheduled opioid medications. 7. Recent umbilical hernia repair. We reviewed the fact that opiate medications are being used to provide analgesia adequate to support activities of daily living, not attempting to achieve a specific pain score on the 0-10 Visual Analog Scale. The current opiate medications are providing sufficient analgesia to allow the patient to participate in activities of daily living. The patient is not exhibiting any aberrant behavior suggestive of drug diversion. The patient is not having any adverse reactions to medications. The patient is not suffering from daytime somnolence or mental acuity changes. The patient is managing opiate-induced constipation with appropriate [id number]-flpyrud agents and dietary considerations. The patient was counseled on concern for caution with operating a motor vehicle while using opiate medications. A physical exam was performed and the patient's functional status was evaluated. [facility] [address] [place] [address] PAIN MANAGEMENT CONSULTATION Name: JOSESITO JULIO Room #: REG [facility]#: [id number] Admission: 07/08/21 Attend Phys: Viv Mathews Discharge: Date of : 47 Report #: [id number] All patients with back pain were advised against the bed rest greater than 4 days and were advised to return to normal activities. Pain score assessment was noted and the treatment plan was reviewed with the patient. All current medications, both prescribed and OTC were reviewed and reconciled on the electronic medical record. Tobacco screening was accomplished and smoking cessation was advised when indicated. BMI was noted and diet/exercise modification was recommended for all patients following outside normal parameters. I reviewed with the patient today their responsibilities to safeguard prescription medications, reviewed their responsibility to utilize medications only as prescribed by the physician. They are to seek and receive pain medications only from 1 physician group ( [facility]). They are to use 1 pharmacy and keep the clinic informed if they change pharmacies. Their responsibilities include making followup visits in a timely fashion and to avoid abrupt discontinuation of medication usage. Their responsibilities further include bringing their medications (bottles from the pharmacy with residual pills) to the visit for possible confirmation of pill counts and the patient understands it is their responsibility to submit to random drug screens to ensure both that the medications prescribed are present, and that no other controlled substances are present. All prescriptions provided today were generated electronically. PLAN: 1. We discussed treatment options with the patient today. The patient believes she will schedule a lumbar epidural steroid injection in the near future. We discussed waiting 2 weeks post-flu vaccine, which was just last week. The patient reports she had her hernia repaired 3 weeks ago and would like to wait slightly longer before scheduling her injection as well. I also reminded her not to have the injection within two weeks of her COVID vaccine. 2. We will continue the patient on her hydrocodone 7.5/325, #120. Scripts will be sent electronically by Dr. Shahab Almeida for today, 4-week and 8-week release. Encouraged the patient to try the lowest most effective dose. In the future, we may try to decrease this to 90 tablets per month if the patient is able. 3. The patient is not needing her gabapentin today, but feels that is beneficial as well. 4. The patient will call as needed for her steroid injection within the next month. Time spent with the patient in consultation, reviewing recent studies and clinical notes and physician reports, physical examination and correlation of findings and medical documentation to determine possible treatments, 15 minutes. Time spent in preparation for appointment, reviewing prescription monitoring system reports, and previous records, proposed treatment options and current medications, 5 minutes. Time spent preparing and sending electronic [facility] [address] [place] [address] PAIN MANAGEMENT CONSULTATION Name: NORIJOSESITO Room #: REG [facility]#: [id number] Admission: 07/08/21 Attend Phys: Viv Mathews Discharge: Date of : 47 Report #: [id number] Shahab Almeida, the collaborating physician, documentation of visit and plan of treatment, 5 minutes. Total time spent 25 minutes. <ELECTRONICALLY SIGNED> By: Viv Mathews 07/09/21 0810 1101 1430 Viv Mathews /nt
== END ==
LOC: PAIN 06:56
PROVIDERS: ATTEND Clinical Nurse Specialist Adult Health
DX: M51.16 Intervertebral disc disorders with radiculopathy, lumbar region (principal); M48.061 Spinal stenosis, lumbar region without neurogenic claudication; M51.17 Intervertebral disc disorders with radiculopathy, lumbosacral region; E66.8 Other obesity; Z98.84 Bariatric surgery status; Z79.899 Other long term (current) drug therapy; Z88.8 Allergy status to other drugs, medicaments and biological substances

== ENCOUNTER → 2021-10-07 | Outpatient (CLI) | payer OTHER, MEDICARE ==
[~2021-10-07] VITALS: Ht 175.3 cm; Wt 92.1 kg
[2021-10-07 10:27] VITALS: BP 94/66
--- NOTE | 2021-10-07 10:45 | NUR ---
Pain Clinic Assessment: 1. History of Osteoarthritis: Left Lower Extremity Right Lower Extremity History of Rheumatoid Arthritis: Not Applicable 2. Height: 5 ft. 9 in. 175.3 cm. Weight: 203.0 lb. oz. 92.080 kg. Patient's BMI: 30.0 3. Vital Signs: BP: 94/66 Pulse: 77 Resp: 16 Temp: 02 Sat: 96 ECG Mon: 4. Pain Intensity: 4 5. Fall Risk: Dizziness: N Needs help standing or walking: N Fallen in the last 3 months: N Fall risk comments: 6. Patient on Blood Thinner: None 7. History of Hypertension: Y 8. Opioid Therapy greater than 6 weeks: Y Opiate Contract Signed: 04/14/16 9. Risk Assessment Tool Provided: LOW-0 10. Functional Assessment Tool: 11. Recreational Drug Use: Never Drug Type: Tobacco Use: Never Smoker Tobacco Type: Amount or Packs/day: How Many Years: Alcohol Use: No Frequency: Quant:
== END ==
LOC: PAIN 09:53
PROVIDERS: ATTEND Clinical Nurse Specialist Adult Health
DX: G89.29 Other chronic pain (principal); M51.16 Intervertebral disc disorders with radiculopathy, lumbar region; M47.26 Other spondylosis with radiculopathy, lumbar region; M48.062 Spinal stenosis, lumbar region with neurogenic claudication; M79.661 Pain in right lower leg; M79.662 Pain in left lower leg; E66.01 Morbid (severe) obesity due to excess calories; Z88.8 Allergy status to other drugs, medicaments and biological substances; Z79.899 Other long term (current) drug therapy